=== PATIENT | female | born 1935 | race Caucasian/White ===

== ENCOUNTER 2023-03-17 13:52 | Inpatient (IN) | payer MEDICARE, OTHER, SELFPAY ==
[2023-03-17 14:01] VITALS: PULSE 86; RESP 16; TEMP 36.6; O2SAT 96; BMI 18.8
--- NOTE | 2023-03-17 14:18 | ECG_ITS ---
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 Measurements Intervals [place] Rate: 79 P: 65 NM: 162 QRS: -71 QRSD: 103 T: 127 QT: 404 QTc: 464 Interpretive Statements SINUS RHYTHM PATTERN CONSISTENT WITH PULMONARY DISEASE INCOMPLETE RIGHT BUNDLE BRANCH BLOCK [90+ ms QRS DURATION, TERMINAL R IN V1/V2, 40+ ms S IN I/aVL/V4/V5/V6] LEFT ANTERIOR FASCICULAR BLOCK [QRS AXIS <= -45, QR IN I, RS IN II] ST DEVIATION AND MODERATE T-WAVE ABNORMALITY, CONSIDER ANTEROLATERAL ISCHEMIA [-0.1+ mV T-WAVE IN V3-V6] No previous ECG available for comparison Electronically Signed On 03-17-2023 16:18:35 CDT by Harjinder Herrera M.D. [id number]
--- NOTE | 2023-03-17 14:41 | XRR_ITS ---
PROCEDURE INFORMATION: Exam: XR Chest Exam date and time: 03/17/2023 2:56 PM Age: 87 years old Clinical indication: Pain; Angina pectoris; Prior surgery; Surgery date: 6+ months; Surgery type: Not specified; Additional info: Chest pain.No history of trauma or recent surgery is provided. TECHNIQUE: Imaging protocol: Radiologic exam of the chest. 1image(s) are provided. Views: 1 view. COMPARISON: No relevant prior studies available. FINDINGS: Tubes, catheters and devices: The sternal wires are aligned with the patient is slightly rotated. Lungs: There is some subsegmental atelectasis versus post inflammatory reticulonodular scarring demonstrated.No lobar consolidation is appreciated. Pleural spaces: No pneumothorax or significant pleural effusion is appreciated. Heart/Mediastinum: The cardiomediastinal silhouette is upper normal in size.This can be seen with central averaging as well as shalonda enlargement.No cardiac decompensation is appreciated. Diaphragm: The hemidiaphragms are symmetric. Bones/joints: Osseous alignment is maintained.No displaced fracture or dislocation is appreciated. There are some chronic appearing degenerative changes of the shoulders. Soft tissues: No radiopaque foreign body or subcutaneous emphysema is appreciated. There are some interventional type clips about the left chest wall along with slight asymmetry of the soft tissues. XR/XR chest 1V portable [id number] IMPRESSION: No lobar consolidation or cardiac decompensation is appreciated with mild chronic air trapping and scarring appearance.No acute cardiopulmonary changes are appreciated.
--- NOTE | 2023-03-17 15:16 | ED_ITS ---
HPI - Arrhythmia/Palpitations General: Chief Complaint: Arrhythmia/Palpitations Stated Complaint: chest pain/heart flutter Time Seen by Provider: 03/17/23 14:50 History of Present Illness: Patient presents to the ER with a 2-day history of heart palpitations. Patient's family said she has complained about this before but today she does not did not look like she felt good. Patient denies any pain but says she is chronically short of breath. Patient is currently undergoing treatment for skin cancer on her left chest and left side of her face. She has appointment set up in [place] for surgical removal. This may be causing patient's anxiety. Patient has had a CABG in the past. Review of Systems General: Reports: 10 or more systems reviewed and unremarkable except in HPI and below Physical Exam Const: COMMON NORMALS: no acute distress, average body habitus, patient oriented x3, no limitations, healthy appearing, alert and well nourished HENMT: COMMON NORMALS: normocephalic, atraumatic, hearing grossly normal bilaterally, external ears normal, Normal external nose present and moist oral mucous membranes HEAD & SCALP: normocephalic and atraumatic NOSE: Normal external nose present EXTERNAL EAR: Yes external ears normal Eye: COMMON NORMALS: Equal, round and reactive pupils present, EOMs intact bilaterally, conjunctivae normal and no scleral icterus CONJUNCTIVA: Yes conjunctivae normal PUPIL: Yes Equal, round and reactive pupils present Neck/C-Spine: COMMON NORMALS: full ROM, no lymphadenopathy, supple, no meningeal signs, no JVD and Thyroid normal THYROID: Thyroid normal Chest: COMMONS NORMALS: normal palpation of entire chest wall; negative for normal inspection of the chest (Open surgical defect on the left anterior chest wall.) Resp: COMMON NORMALS: normal respiratory effort, No retractions, No use of accessory muscles and clear to auscultation bilaterally AUSCULTATION: clear to auscultation bilaterally Cardio: COMMON NORMALS: no JVD, regular rate, regular rhythm, S1 normal heart sound present and S2 normal heart sound present; negative for No murmurs present (Cardio) (Systolic ejection murmur noted) RATE: regular rate RHYTHM: regular rhythm HEART SOUNDS: S1 normal heart sound present and S2 normal heart sound present GI: COMMON NORMALS: Normal to inspection, nondistended, normoactive bowel sounds present, Soft to palpation, non-tender, No hepatosplenomegaly present and no masses PALPATION: Yes Soft to palpation and Yes No hepatosplenomegaly present : COMMON NORMALS: Yes no CVA tenderness BLADDER/KIDNEY EXAM: Yes no CVA tenderness Back/Pelvis: COMMON NORMALS: no CVA tenderness Neuro: COMMON NORMALS: patient oriented x3 SENSORIUM/ORIENTATION: Yes alert MENINGEAL SIGNS: Yes no meningeal signs Course Vital Signs: Vital signs: Vital Signs Temperature 97.9 F 03/17/23 14:01 Pulse Rate 86 03/17/23 14:01 Respiratory Rate 16 03/17/23 14:01 Pulse Oximetry 96 03/17/23 14:01 Oxygen Delivery Me thod Room Air 03/17/23 14:01 MDM - Arrhythmia/Palpitations Medical Decision Making Patient presents ER with complaints of heart palpitations since yesterday. Patient says feels like her heart is jumping out of her chest. Patient denies any pain however patient does have a cardiac history with a multivessel bypass approximately 15 years ago. Patient is a diabetic on metformin and metoprolol. EKG was obtained chest x-ray and lab work. Lab work shows extremely elevated troponin initial of 625. EKG showed normal sinus rhythm with a left anterior fascicular block and right bundle branch block Dr. Benton was consulted who agreed to accept the patient for further evaluation and treatment. We will give the patient a full dose Lovenox and perform a D-dimer., Differential Diagnosis Likely palpitations and ventricular premature beats; Unlikely anxiety, sinus tachycardia, artial fibrillation, artial flutter, supraventricular tachycardia, ventricular tachycardia or WPW Medical Records I reviewed the patient's medical records. Lab Data I reviewed the patient's lab results. 03/17/23 15:12 03/17/23 15:12 Radiology Impressions Chest X-Ray 03/17/23 14:41 IMPRESSION: No lobar consolidation or cardiac decompensation is appreciated with mild chronic air trapping and scarring appearance.No acute cardiopulmonary changes are appreciated. Laboratory Results WBC 10.3 10^3/uL (4.0-10.0) H 03/17/23 15:12 RBC 3.99 10^6/uL (4.1-5.3) L 03/17/23 15:12 Hgb 12.4 g/dL (11.5-15.3) 03/17/23 15:12 Hct 38.6 % (37.0-47.0) 03/17/23 15:12 MCV 96.7 fl (81-99) 03/17/23 15:12 MCH 31.1 pg (28.0-34.0) 03/17/23 15:12 MCHC 32.1 g/dL (30.0-36.0) 03/17/23 15:12 RDW 13.2 % (12.1-15.1) 03/17/23 15:12 Plt Count 191 10^3/cmm (130-400) 03/17/23 15:12 MPV 9.5 fL (7.4-10.4) 03/17/23 15:12 Neut % (Auto) 69.8 % 03/17/23 15:12 Lymph % (Auto) 16.9 % 03/17/23 15:12 Charles % (Auto) 11.5 % 03/17/23 15:12 Eos % (Auto) 1.0 % 03/17/23 15:12 Baso % (Auto) 0.6 % 03/17/23 15:12 Neut # (Auto) 7.21 10^3/uL (1.8-7.7) 03/17/23 15:12 Lymph # (Auto) 1.8 10^3/uL (0.8-4.8) 03/17/23 15:12 Charles # (Auto) 1.2 10^3/uL (0.2-0.9) H 03/17/23 15:12 Eos # (Auto) 0.1 10^3/uL (0.0-0.8) 03/17/23 15:12 Baso # (Auto) 0.1 10^3/uL (0.0-0.1) 03/17/23 15:12 Nucleated RBC % (auto) 0 % 03/17/23 15:12 Nucleated RBCs # 0.0 /100WBC 03/17/23 15:12 Sodium 135 mmol/L (136-145) L 03/17/23 15:12 Potassium 4.0 mmol/L (3.5-5.1) 03/17/23 15:12 Chloride 102 mmol/L (98-107) 03/17/23 15:12 Carbon Dioxide 20 mmol/L (22-29) L 03/17/23 15:12 Anion Gap 17.0 (5-19) 03/17/23 15:12 BUN 14 mg/dL (8-23) 03/17/23 15:12 Creatinine 0.8 mg/dL (0.5-0.9) 03/17/23 15:12 GFR Calculation Not Reportable 03/17/23 15:12 Glucose 237 mg/dL (65-115) H 03/17/23 15:12 Calculated Osmolality 288 mOsm/kg (285-295) 03/17/23 15:12 Calcium 9.6 mg/dL (8.5-10.5) 03/17/23 15:12 Total Bilirubin 0.7 mg/dL (0.15-1.2) 03/17/23 15:12 AST 18 U/L (0-32) 03/17/23 15:12 ALT < 5 U/L (0-33) 03/17/23 15:12 Alkaline Phosphatase 80 U/L (35-105) 03/17/23 15:12 Troponin T Baseline 625 ng/L (0-10) H* 03/17/23 15:12 Total Protein 7.1 g/dL (6.6-8.7) 03/17/23 15:12 Albumin 3.6 g/dL (3.5-5.2) 03/17/23 15:12 Globulin 3.5 g/dL (1.3-4.6) 03/17/23 15:12 EKG Data EKG 1: I personally reviewed and interpreted this EKG as follows: EKG interpretation date: 03/17/23 EKG interpretation time: 14:18 Prior EKG tracings: not available for review Interpretation: EKG showed normal sinus rhythm with a ventricular rate of 79 beats minute, NJ interval 162, QRS 103, QTc 464, no ST-T wave changes, left anterior fascicular block, right bundle branch block incomplete Other EKG comments: Chest X-Ray 03/17/23 14:41 IMPRESSION: No lobar consolidation or cardiac decompensation is appreciated with mild chronic air trapping and scarring appearance.No acute cardiopulmonary changes are appreciated. Discharge Plan Discharge Patient Disposition: Admitted As Inpatient Clinical Impression: Palpitations, Elevated troponin, Hx of CABG, Diabetes Condition: Stable Coding Level of Care Code ED Telepathist for Chg Fwregan
[2023-03-17 15:20] LABS: Basophils # 0.1 10^3/uL (0.0-0.1); Basophils % 0.6 %; Eosinophils # 0.1 10^3/uL (0.0-0.8); Hematocrit 38.6 % (37.0-47.0); Hemoglobin 12.4 g/dL (11.5-15.3); Lymphocytes # 1.8 10^3/uL (0.8-4.8); Lymphocytes % 16.9 %; Mean Corpuscular HGB Conc 32.1 g/dL (30.0-36.0); Mean Corpuscular Hemoglobin 31.1 pg (28.0-34.0); Mean Corpuscular Volume 96.7 fl (81-99); Mean Platelet Volume 9.5 fL (7.4-10.4); Monocytes # 1.2 10^3/uL (0.2-0.9); Monocytes % 11.5 %; Neutrophils # 7.21 10^3/uL (1.8-7.7); Neutrophils % 69.8 %; Nucleated Red Blood Cells % 0 %; Platelet Count 191 10^3/cmm (130-400); Red Blood Count 3.99 10^6/uL (4.1-5.3); Red Cell Distribution Width 13.2 % (12.1-15.1); White Blood Count 10.3 10^3/uL (4.0-10.0)
[2023-03-17 15:41] LABS: Troponin(5th) Baseline 625 ng/L (0-10)
[2023-03-17 15:44] LABS: Alanine Aminotransferase < 5 U/L (0-33); Albumin Level 3.6 g/dL (3.5-5.2); Alkaline Phosphatase 80 U/L (35-105); Aspartate Amino Transferase 18 U/L (0-32); Blood Urea Nitrogen 14 mg/dL (8-23); Calcium 9.6 mg/dL (8.5-10.5); Carbon Dioxide 20 mmol/L (22-29); Chloride 102 mmol/L (98-107); Creatinine Clr Calc Pharmacy 33.6154; Globulin 3.5 g/dL (1.3-4.6); Glucose 237 mg/dL (65-115); Osmolality Calculated 288 mOsm/kg (285-295); Sodium 135 mmol/L (136-145); Total Bilirubin 0.7 mg/dL (0.15-1.2); Total Protein 7.1 g/dL (6.6-8.7)
[2023-03-17] MEDS: enoxaparin 40 mg/0.4 mL Syringe SUBCUT ×2 (16:29→20:06)
--- NOTE | 2023-03-17 16:41 | ECG_ITS ---
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 Measurements Intervals [place] Rate: 88 P: 62 MT: 167 QRS: -70 QRSD: 102 T: 127 QT: 384 QTc: 466 Interpretive Statements SINUS RHYTHM WITH OCCASIONAL SUPRAVENTRICULAR PREMATURE COMPLEXES LEFT AXIS DEVIATION [QRS AXIS < -30] INCOMPLETE RIGHT BUNDLE BRANCH BLOCK [90+ ms QRS DURATION, TERMINAL R IN V1/V2, 40+ ms S IN I/aVL/V4/V5/V6] ST DEVIATION AND MODERATE T-WAVE ABNORMALITY, CONSIDER ANTEROLATERAL ISCHEMIA [-0.1+ mV T-WAVE IN V3-V6] Compared to ECG 03/17/2023 14:18:50 Left-axis deviation now present Left anterior fascicular block no longer present T-wave abnormality still present Possible ischemia still present Electronically Signed On 03-18-2023 9:55:18 CDT by Codi Quinn M.D. [id number]
[2023-03-17 17:03] LABS: D Dimer 0.87 ug/mIFEU (0-0.59)
[2023-03-17 17:07] VITALS: PULSE 80; RESP 21; O2SAT 97
--- NOTE | 2023-03-17 17:18 | USCV_ITS ---
Talisha Brown Age: 87 Gender: F : 1935 Exam Date: 03/17/2023 19:13 Ordering Phys: Andriy Bhatia MD Technologist: AMINATA [place] [facility] [place]: NSTEMI, history of CABG s/p MD 2008. BP: 109 / 50 HR: 77 Rhythm: PVCs Technical Quality: Adequate MEASUREMENTS (Male / Female) Normal Values 2D ECHO LV Diastolic Diameter PLAX 4.2 cm 4.2 - 5.9 / 3.9 - 5.3 cm LV Systolic Diameter PLAX 3.1 cm IVS Diastolic Thickness 1.0 cm 0.6 - 1.0 / 0.6 - 0.9 cm IVS Systolic Thickness 1.2 cm LVPW Diastolic Thickness 0.6 cm 0.6 - 1.0 / 0.6 - 0.9 cm LVPW Systolic Thickness 1.4 cm LVOT Diameter 1.7 cm LV Ejection Fraction 2D Teich 53.8 % LV Ejection Fraction MOD 2C 48.6 % LV Ejection Fraction 2C AL 49.4 % LA Diameter 3.2 cm LA Width 3.1 cm LA Height 4.9 cm RA Width 3.5 cm RA Height 3.9 cm Aorta at Sinotubular Diameter 3.0 cm IVC Diameter 0.8 cm M-MODE Aortic Annulus Diameter 2.8 cm LA Ao Ratio MM 1.2 MV E Point Septal Separation 0.5 cm DOPPLER AV Peak Velocity 127.0 cm/s LVOT Peak Velocity 77.0 cm/s AV Area Cont Eq vti 1.4 cm squared AV Area Cont Eq pk 1.3 cm squared MV Peak Velocity 123.0 cm/s MV Area PHT 3.5 cm squared Mitral E to A Ratio 1.0 MV E' Velocity 57.0 cm/s Mitral E to MV E' Ratio 23.9 Mitral E to LV E' Lateral Ratio 17.9 Mitral E to LV E' Septal Ratio 37.1 TR Peak Velocity 208.0 cm/s TR Peak Gradient 17.3 mmHg TV Peak E Velocity 31.0 cm/s Right Atrial Pressure 5.0 mmHg Pulmonary Artery Systolic Pressu 22.3 mmHg PV Peak Velocity 119.0 cm/s RV Acceleration Time 0.1 s RV Ejection Time 0.3 s RV AcT/ET 0.3 FINDINGS Left Ventricle Normal left ventricular cavity size. Moderately decreased left ventricular systolic function. Left ventricular ejection fraction is estimated at 35 %. Severe hypokinesis of basal to mid anterior, basal to mid anteroseptal, inferoseptal, apical septal, apical anterior, apical inferior and apical matias. Grade I diastolic dysfunction (abnormal relaxation filling pattern), normal to mildly elevated filling pressures. Right Ventricle RVSP could not be calculated due to incomplete tricuspid regurgitation velocity profile. Right Atrium Normal right atrial size. Left Atrium Normal left atrial size. Mitral Valve Mildly thickened mitral valve. No mitral valve stenosis. Trace to mild mitral valve regurgitation. Aortic Valve Mildly thickened and calcified trileaflet aortic valve. No aortic valve stenosis. Trace aortic valve regurgitation. Tricuspid Valve Structurally normal tricuspid valve. Trace tricuspid valve regurgitation. Pulmonic Valve Pulmonic valve not well visualized. No pulmonary valve stenosis. Trace pulmonary valve regurgitation. Pericardium No pericardial effusion. Aorta Normal size aortic root and proximal ascending aorta. IVC Normal IVC dimension with >50% respiratory change of the inferior vena cava. CONCLUSIONS 1. This is a technically difficult study. 2. Normal left ventricular cavity size. Moderately decreased left ventricular systolic function. Left ventricular ejection fraction is estimated at 35 %. Severe hypokinesis of basal to mid anterior, basal to mid anteroseptal, inferoseptal, apical septal, apical anterior, apical inferior and apical matias. Grade I diastolic dysfunction (abnormal relaxation filling pattern), normal to mildly elevated filling pressures. 3. No prior similar studies to compare. Codi Quinn MD (Electronically Signed) Final Date: 18 March 2023 09:51 S
--- NOTE | 2023-03-17 17:19 | P.HP_ITS ---
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 She presents to the emergency room due to chest pain which has been ongoing for the past several weeks. Patient not able to give me a clear timeline but states that she has had intermittent chest discomfort at least over the past 3 to 4 weeks. She has not noticed any obvious exacerbating or relieving factors. Chest pain is located in central chest, stabbing in nature, occurs both during exertion and rest. She initially attributed it to the known squamous cell cancer on her anterior chest wall for which she has scheduled surgery in [place] on . However when the pain became more frequent she presented to the emergency room today. EKG did not show any acute ST-T wave changes. Troponin baseline was at 625, trending up to 730 at 2 hours with a delta of over 100. Also has a known history of diabetes mellitus for which she is currently on metformin. Denies any recent cough. Denies any dyspnea. Denies any lower extremity swelling. As per patient she is due for a possible removal of squamous cell carcinoma from chest wall up at [facility] within next 1 week. Patient has been noncompliant to her medications as per the daughter as she does not like taking medications because she thinks they make her sicker. Patient has not been on aspirin or Plavix for many months. Review of Systems General: Reports: 10 or more systems reviewed and unremarkable except in HPI and below Const: Denies: fever(s), chills, body aches, change in appetite, change in weight, malaise, night sweats, diaphoresis, change in sleep pattern, daytime sleepiness or snoring Eyes: Denies: change in vision, blurry vision, photophobia, eye discomfort or eye discharge ENMT: Denies: throat pain, enlarged tonsils, hoarseness, mouth pain, oral sores, dry mouth, tinnitus, nasal congestion or post nasal drip Card: Denies: chest pain, palpitations, irregular heart rhythm, edema, swelling of feet/ankles, lightheadedness, syncope, pre-syncope, dyspnea on exertion, orthopnea, leg pain with exertion or acrocyanosis Resp: Denies: dyspnea, productive cough, non-productive cough, wheezing, stridor, pain on inspiration, change in phlegm color, hemoptysis or chest congestion GI: Denies: abdominal pain, nausea, vomiting, hematemesis, coffee ground emesis, dysphagia, heartburn, diarrhea, constipation, bloating, GI cramping, change in bowel habits, pain on defecation, hematochezia or melena : Denies: flank pain, dysuria, urinary frequency, urinary urgency, urinary hesitancy, nocturia or hematuria Musc: Denies: neck pain, back pain, extremity pain, joint pain, joint swelling, joint redness, joint stiffness or limited range of motion Neuro: Denies: headache(s), numbness in extremities, weakness in extremities, sensory changes, lack of coordination, difficulty walking, frequent falls, dizziness, vertigo, confusion, Slurred speech present, difficulty communicating thoughts or seizure-like activity Psych: Denies: anxiety, depression, mood swings, panic attacks, hopelessness or irritability Endo: Denies: polyuria, polydipsia, tired all the time, cold intolerance, excessive sweating, flushing or heat intolerance Sage/Lymph: Denies: easy bruising or easy bleeding All/Imm: Denies: tongue swelling, facial swelling or acute wheezing Medications/Allergies Home Medications Medication Instructions Recorded Confirmed Last Taken Type metformin 500 mg tablet 500 mg PO BID 03/17/23 03/17/23 Unknown History metoprolol succinate 25 mg 12.5 mg PO BID 03/17/23 03/17/23 Unknown History tablet,extended release 24 hr Allergies Allergy/AdvReac Type Severity Reaction Status Date / Time No Known Allergies Allergy Verified 03/17/23 16:28 PFSH Acute PFSH: Medical History (Updated 03/18/23 @ 12:48 by Andriy Bhtaia MD) Coronary artery disease Melanoma Squamous cell carcinoma of skin of chest Surgical History Hx of CABG Vitals/I&O/Wt Last Vital Signs Temp 97.9 F 03/17/23 14:01 Pulse 80 03/17/23 17:07 Resp 21 H 03/17/23 17:07 Pulse Ox 97 03/17/23 17:07 O2 Del Method Room Air 03/17/23 14:01 Weight last 48 hrs Weight 42.184 kg Physical Exam Narrative: EXAM NARRATIVE: General: No acute distress, AO x3 HEENT: PERRLA, pupils bilaterally equal and reactive Chest: equal good air entry bilaterally CVS: S1-S2 regular, no murmurs, no tachycardia, no gallops, no rubs Abdomen: Soft, nontender, no organomegaly, bowel sounds present Neuro: No focal deficits, no facial deformity, AO x3, power 5/5 in all limbs Data 03/18/23 04:56 03/18/23 04:56 Other Labs: Radiology Impressions Chest X-Ray 03/17/23 14:41 IMPRESSION: No lobar consolidation or cardiac decompensation is appreciated with mild chronic air trapping and scarring appearance.No acute cardiopulmonary changes are appreciated. Laboratory Results WBC 10.3 10^3/uL (4.0-10.0) H 03/17/23 15:12 RBC 3.99 10^6/uL (4.1-5.3) L 03/17/23 15:12 Hgb 12.4 g/dL (11.5-15.3) 03/17/23 15:12 Hct 38.6 % (37.0-47.0) 03/17/23 15:12 MCV 96.7 fl (81-99) 03/17/23 15:12 MCH 31.1 pg (28.0-34.0) 03/17/23 15:12 MCHC 32.1 g/dL (30.0-36.0) 03/17/23 15:12 RDW 13.2 % (12.1-15.1) 03/17/23 15:12 Plt Count 191 10^3/cmm (130-400) 03/17/23 15:12 MPV 9.5 fL (7.4-10.4) 03/17/23 15:12 Neut % (Auto) 69.8 % 03/17/23 15:12 Lymph % (Auto) 16.9 % 03/17/23 15:12 Hardy % (Auto) 11.5 % 03/17/23 15:12 Eos % (Auto) 1.0 % 03/17/23 15:12 Baso % (Auto) 0.6 % 03/17/23 15:12 Neut # (Auto) 7.21 10^3/uL (1.8-7.7) 03/17/23 15:12 Lymph # (Auto) 1.8 10^3/uL (0.8-4.8) 03/17/23 15:12 Hardy # (Auto) 1.2 10^3/uL (0.2-0.9) H 03/17/23 15:12 Eos # (Auto) 0.1 10^3/uL (0.0-0.8) 03/17/23 15:12 Baso # (Auto) 0.1 10^3/uL (0.0-0.1) 03/17/23 15:12 Nucleated RBC % (auto) 0 % 03/17/23 15:12 Nucleated RBCs # 0.0 /100WBC 03/17/23 15:12 D-Dimer 0.87 ug/mIFEU (0-0.59) H 03/17/23 16:40 Sodium 135 mmol/L (136-145) L 03/17/23 15:12 Potassium 4.0 mmol/L (3.5-5.1) 03/17/23 15:12 Chloride 102 mmol/L (98-107) 03/17/23 15:12 Carbon Dioxide 20 mmol/L (22-29) L 03/17/23 15:12 Anion Gap 17.0 (5-19) 03/17/23 15:12 BUN 14 mg/dL (8-23) 03/17/23 15:12 Creatinine 0.8 mg/dL (0.5-0.9) 03/17/23 15:12 GFR Calculation Not Reportable 03/17/23 15:12 Glucose 237 mg/dL (65-115) H 03/17/23 15:12 POC Glucose 243 mg/dL (70-110) H 03/17/23 22:56 Calculated Osmolality 288 mOsm/kg (285-295) 03/17/23 15:12 Calcium 9.6 mg/dL (8.5-10.5) 03/17/23 15:12 Iron 28 ug/dL (37-145) L 03/17/23 15:12 TIBC 319 mcg/dl 03/17/23 15:12 % Saturation 8.7 % (20-50) L 03/17/23 15:12 Unsat Iron Binding 291 ug/dL (112-347) 03/17/23 15:12 Total Bilirubin 0.7 mg/dL (0.15-1.2) 03/17/23 15:12 AST 18 U/L (0-32) 03/17/23 15:12 ALT < 5 U/L (0-33) 03/17/23 15:12 Alkaline Phosphatase 80 U/L (35-105) 03/17/23 15:12 Troponin T Baseline 625 ng/L (0-10) H* 03/17/23 15:12 Troponin T 120 Minute 730.6 ng/L (0-10) H 03/17/23 16:40 Delta Troponin T 105.6 ABS# (0-10) H* 03/17/23 16:40 Troponin T Hi Sens 6Hr 679.4 ng/L (0-10) H 03/17/23 21:18 Troponin T Hi Sens 6Hr Delta 54.4 ng/L (0-12) H* 03/17/23 21:18 Total Protein 7.1 g/dL (6.6-8.7) 03/17/23 15:12 Albumin 3.6 g/dL (3.5-5.2) 03/17/23 15:12 Globulin 3.5 g/dL (1.3-4.6) 03/17/23 15:12 Vitamin B12 150 pg/mL (232-1245) L 03/17/23 15:12 Procalcitonin 0.04 ng/mL (0-0.5) 03/17/23 15:12 TSH 2.97 uIU/mL (0.27-4.20) 03/17/23 15:12 A&P Assessment and plan (1) NSTEMI (non-ST elevated myocardial infarction): 87-year-old lady with a past medical history of CAD, status post remote CABG, presenting with chest pain over the past several weeks worsened over the past 24 to 48 hours. EKG shows sinus rhythm heart rate 88 bpm. Troponin baseline at 625, trending up to 738 2 hours with a delta of greater than 100. 6-hour troponin is currently pending. Admit to CSU aspirin 325 mg stat now, Lipitor 80 mg now. Start Lovenox 1 mg/kg every 12 hours subcutaneously Continue aspirin 81 mg daily, atorvastatin 80 mg daily, metoprolol 12.5 mg p.o. twice daily Cardiology consult to assess for coronary angiogram Check lipid panel (2) Diabetes: Sliding scale for diabetes management Check HbA1c with a.m. labs Qualifiers: Diabetes mellitus complication status: without complication Diabetes mellitus senior care insulin use: without senior care use Diabetes mellitus type: type 2 Qualified Code(s): E11.9 - Type 2 diabetes mellitus without complications (3) Squamous cell carcinoma of skin of chest: Check CTA to rule out for pulmonary embolism with concerns for malignancy and extent of the chest wall mass Plan DVT prophylaxis: Currently on full dose Lovenox for NSTEMI CODE STATUS: Discussed in detail with the patient. DNR/DNI. 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
[2023-03-17 17:33] LABS: Troponin 5 2HR 730.6 ng/L (0-10); Troponin 5 2HR Delta 105.6 ABS# (0-10)
[2023-03-17 18:13] LABS: Iron 28 ug/dL (37-145); Percent Saturation 8.7 % (20-50); Thyroid Stimulating Hormone 2.97 uIU/mL (0.27-4.20); Total Iron Binding Capacity 319 mcg/dl; Unsaturated Iron Binding 291 ug/dL (112-347); Vitamin B12 150 pg/mL (232-1245)
[2023-03-17 18:51] LABS: Procalcitonin 0.04 ng/mL (0-0.5)
[2023-03-17 20:00] VITALS: BP 109/50; PULSE 69; RESP 19; TEMP 36.7; O2SAT 99
[2023-03-17] MEDS: metoprolol succinate ER (24 HR) 25 mg Tablet 12.5 MG PO (20:06)
[2023-03-17 21:54] LABS: Troponin 5 6HR 679.4 ng/L (0-10); Troponin 5 6HR Delta 54.4 ng/L (0-12)
[2023-03-17 22:59] LABS: Glucose Point of Care 243 mg/dL (70-110)
--- NOTE | 2023-03-17 23:44 | ECG_ITS ---
[facility] Test Date: 2023-03-18 Pat Name: Talisha Brown Department: Room: 112 Gender: Female Tower Attendant: : 1935 Requested By: Andriy Bhatia Order Number: [id number] Isaak MD: Codi Quinn M.D. Interpretive Statements NAME OF STUDY: LEXISCAN SESTAMIBI STRESS TEST INDICATION: NONSTEMI PROCEDURE: At the baseline, the blood pressure was 120/62 mmHg with a heart rate of 69 bpm. The electrocardiogram showed sinus rhythm, left axis deviation. Mild ST elevation and deep T wave inversion noted in V1-V3. Moderate T wave inversion noted in lead I, aVL, V4 to V5. The Lexiscan was infused over a period of 20 seconds. A total of 0.4 milligrams of Lexiscan was infused. The stress phase was continued for a total of 5 minutes. Heart rate at the end of the stress phase was 76 bpm with a blood pressure 104/45 mmHg. The EKG at the peak infusion revealed sinus rhythm with first-degree AV block with frequent PVCs in bigeminal pattern. ST elevation becomes more prominent anterior leads. Sestamibi was injected 20 seconds after the Lexiscan infusion. Blood pressure at the end of the recovery phase was 143/65 mmHg with a heart rate of 77 beats per minute. CONCLUSION: 1. Marked positive EKG changes with the LexiScan infusion. More pronounced ST elevation with deep T wave inversion noted in V1 to V3 anterior leads with deep T wave inversion in 1 aVL V4 to V5 at peak infusion. 2. No LexiScan induced chest pain. PVCs noted during Lexiscan infusion. 3. Normal blood pressure and heart rate response. 4. Sestamibi/sestamibi perfusion scan pending; see separate report. Electronically Signed On 03-30-2023 13:15:35 CDT by Codi Quinn M.D. [id number]
[2023-03-18] VITALS (83 sets, daily range): BP systolic 120–173; BP diastolic 60–99; PULSE 0–83; RESP 10–22; TEMP 36.5–37.3; O2SAT 94–100
[2023-03-18 05:33] LABS: Basophils # 0.1 10^3/uL (0.0-0.1); Basophils % 0.6 %; Eosinophils # 0.1 10^3/uL (0.0-0.8); Eosinophils % 1.1 %; Hematocrit 38.7 % (37.0-47.0); Hemoglobin 12.9 g/dL (11.5-15.3); Lymphocytes # 2.1 10^3/uL (0.8-4.8); Lymphocytes % 22.9 %; Mean Corpuscular HGB Conc 33.3 g/dL (30.0-36.0); Mean Corpuscular Hemoglobin 31.2 pg (28.0-34.0); Mean Corpuscular Volume 93.5 fl (81-99); Mean Platelet Volume 9.4 fL (7.4-10.4); Monocytes # 0.9 10^3/uL (0.2-0.9); Monocytes % 9.7 %; Neutrophils % 65.1 %; Nucleated Red Blood Cells % 0 %; Platelet Count 267 10^3/cmm (130-400); Red Blood Count 4.14 10^6/uL (4.1-5.3); Red Cell Distribution Width 13.2 % (12.1-15.1); White Blood Count 9.1 10^3/uL (4.0-10.0)
[2023-03-18 05:53] LABS: Estmated Average Glucose 169; Hemoglobin A1C 7.5 % (4.0-6.0)
[2023-03-18] MEDS: enoxaparin 40 mg/0.4 mL Syringe SUBCUT ×2 (06:07→17:56)
[2023-03-18 06:23] LABS: Alanine Aminotransferase < 5 U/L (0-33); Albumin Level 3.8 g/dL (3.5-5.2); Alkaline Phosphatase 82 U/L (35-105); Anion Gap 12.9 (5-19); Aspartate Amino Transferase 15 U/L (0-32); Blood Urea Nitrogen 11 mg/dL (8-23); Calcium 10.3 mg/dL (8.5-10.5); Carbon Dioxide 26 mmol/L (22-29); Chloride 99 mmol/L (98-107); Cholesterol 159 mg/dL (0-200); Creatinine Clr Calc Pharmacy 33.6154; Globulin 3.4 g/dL (1.3-4.6); Glucose 202 mg/dL (65-115); HDL Cholesterol 53 mg/dL (60-100); LDL Cholesterol Calculated 85 mg/dL (50-129); Magnesium 1.5 mg/dL (1.7-2.3); Osmolality Calculated 283 mOsm/kg (285-295); Phosphorus 2.4 mg/dL (2.5-4.5); Potassium 3.9 mmol/L (3.5-5.1); Sodium 134 mmol/L (136-145); Total Bilirubin 1.1 mg/dL (0.15-1.2); Total Protein 7.2 g/dL (6.6-8.7); Triglycerides 106 mg/dL (0-150)
[2023-03-18 06:34] LABS: Folate Level 14.8 ng/mL (4.8-37.3)
[2023-03-18 06:43] LABS: Glucose Point of Care 199 mg/dL (70-110)
[2023-03-18] MEDS: regadenoson 0.4 Mg/5 ml Syringe IVP (07:21)
--- NOTE | 2023-03-18 07:28 | PM.CONSULT ---
Providers/Reason For Consult Consulting Physician/Specialty*: Dr. 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 She presented to the ER with anterior wall chest pain that she attributes to the melanoma. EKG showes anterolateral ST-T wave changes suggestive of ischemia.? Troponin baseline 625, trending up to 730 at 2 hours with a delta of over 100 and third set at 680. No?dyspnea, lower extremity swelling. 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 Patient has not been on aspirin or Plavix for many months Review of Systems Const: Denies: fatigue Eyes: Denies: change in vision ENMT: Denies: throat pain, bleeding gums or epistaxis Card: Reports: chest pain; Denies: palpitations, irregular heart rhythm, edema, swelling of feet/ankles, lightheadedness, syncope, pre-syncope, dyspnea on exertion or orthopnea Resp: Denies: dyspnea, productive cough or non-productive cough GI: Denies: abdominal pain, nausea, vomiting, hematemesis, diarrhea, constipation or hematochezia : Denies: dysuria or hematuria Musc: Denies: back pain, extremity swelling, joint pain or muscle weakness Skin/Breast: Denies: rash Neuro: Denies: dizziness Psych: Denies: anxiety or depression Endo: Denies: tired all the time Sage/Lymph: Denies: easy bruising or easy bleeding Medications/Allergies Home Medications Medication Instructions Recorded Confirmed Last Taken Type metformin 500 mg tablet 500 mg PO BID 03/17/23 03/17/23 Unknown History metoprolol succinate 25 mg 12.5 mg PO BID 03/17/23 03/17/23 Unknown History tablet,extended release 24 hr Allergies Allergy/AdvReac Type Severity Reaction Status Date / Time No Known Allergies Allergy Verified 03/17/23 16:28 Current Medications Generic Name Dose Route Start Last Admin Trade Name Freq PRN Reason Stop Dose Admin Enoxaparin Sodium 40 mg 03/17/23 18:48 03/18/23 06:07 Enoxaparin 40 Mg/0.4 Ml Syringe SUBCUT 40 mg Q12H STACIE Administration Insulin Human Lispro 0 unit 03/17/23 18:48 03/17/23 22:40 Insulin Lispro 100 Unit/1 Ml SUBCUT Not Given WM&BEDTIME STACIE Protocol Metoprolol Succinate 12.5 mg 03/17/23 18:48 03/17/23 20:06 Metoprolol Succinate Er (24 Hr) 25 Mg Tablet PO 12.5 mg BID STACIE Administration PFSH Acute PFSH: Medical History Coronary artery disease Hypertension Ischemic cardiomyopathy Left ventricular systolic dysfunction (LVSD) Melanoma Squamous cell carcinoma of skin of chest Surgical History Hx of CABG Vitals/I&O/Wt Last Vital Signs Temp 99.2 F 03/18/23 04:00 Pulse 70 03/18/23 04:00 Resp 17 03/18/23 04:00 BP 164/94 03/18/23 04:00 Pulse Ox 97 03/18/23 04:00 O2 Del Method Room Air 03/18/23 04:00 FiO2 21 03/18/23 01:31 03/17/23 03/18/23 03/18/23 22:59 06:59 14:59 Intake Total 480 / 480 Output Total 2 / 2 Balance 478 / 478 Weight last 48 hrs Weight 93 lb Physical Exam Narrative: Gen: NAD, frail elderly lady sitting in bed HEENT/Neck: No JVD, murmur or gallop RS: CTAB/L, anterior chest wall malignant lesion on left upper chest CVS: S1, S2, regular, No murmur, rub or gallop PA: soft, NT, ND, BS2+ RIVET SPINNER: awake, alert and oriented to self Ext: No edema, cyanosis Data 03/18/23 04:56 03/18/23 04:56 Other data: TTE (03/17/23) ?CONCLUSIONS ?1. This is a technically difficult study. ?2. Normal left ventricular cavity size. Moderately decreased ?left ventricular systolic function.? Left ventricular ejection ?fraction is estimated at 35 %. Severe hypokinesis of basal to ?mid anterior, basal to mid anteroseptal, inferoseptal, apical ?septal, apical anterior, apical inferior and apical matias. Grade ?I diastolic dysfunction (abnormal relaxation filling pattern), ?normal to mildly elevated filling pressures. ?3.? No prior similar studies to compare. A&P Assessment and plan (1) NSTEMI (non-ST elevated myocardial infarction): Patient is at high risk for LHC given advanced age and fragility of the patient. -echo with LV function with LAD territory RWMA -I will check on stress test that was done this morning -continue medical management for now. (2) Ischemic cardiomyopathy: (3) Hypertension: (4) Diabetes: Qualifiers: Diabetes mellitus complication status: without complication Diabetes mellitus fdc insulin use: without fdc use Diabetes mellitus type: type 2 Qualified Code(s): E11.9 - Type 2 diabetes mellitus without complications (5) Noncompliance: Plan CAD s/p CABG Advanced age Fraility Coding Level of Care Code Acute Code for [facility] Diagnoses NSTEMI (non-ST elevated myocardial infarction) I21.4 Ischemic cardiomyopathy I25.5 Hypertension I10 Diabetes E11.9 Diabetes mellitus complication status: without complication Diabetes mellitus long term acute care registered nurse insulin use: without long term acute care registered nurse use Diabetes mellitus type: type 2 Noncompliance Z91.199
[2023-03-18] MEDS: iohexol 350 mg/mL 500 mL Btl (per mL) IV (08:37)
--- NOTE | 2023-03-18 09:12 | PC.CHAP ---
Pastoral Care Encounter/Spiritual Assessment Type of Contact [] Declined vice president of procurement visit [] Patient/Family/Request visit [] Outpatient visit [] Follow-up visit [] Physician referral [] Code/Alert [] Routine visit [] Staff referral [] Actively dying [] Patient sleeping [] Family support [] [] Out of room [] Palliative care [] [x] Receiving care in room [] Pre-surgical visit [] Trauma [] Long length of stay [] ICU visit [] Other: Relational/Emotional Strength [] Patient feels connected with others/family/visitors/staff [] Distress [] Loneliness/isolation [] Abandonment Spirituality of Patient [] Person of Kimber[place] [] Attends Faith of their [place] [] Believes in Prayer [] Reads Bible or Church materials [] There are Spiritual issues to be addressed 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 [] Prayer [] Active listening [] Non-anxious presence [] Spiritual/emotional support [] Crisis/trauma care [] Spiritual counseling [] Bereavement support [] Provided bereavement packet [] Provided Bible/devotional materials [] Provided toy/stuffed animal, coloring book to patient or family member [] Provided Communion [] Anointing/[place] [] Salvation [] Completed spiritual assessment [] Other: Impact on Illness or Injury [] Angry [] Fearful [] Anxious [] Often cries [] Exhaustion [] Unable to work [] Unable to attend advent [] Unable to walk/stand [] Unable to read [] Unable to drive [] Unable to eat/drink [] Unable to sleep [] Unable to be with family [] Patient intubated [] Other: Summary Time spent with patient
--- NOTE | 2023-03-18 09:30 | CTR_ITS ---
PROCEDURE INFORMATION: Exam: CTA Chest With Contrast Exam date and time: 03/18/2023 8:18 AM Age: 87 years old Clinical indication: Abnormal findings; Abnormal diagnostic tests; Elevated d-dimer; Prior surgery; Surgery date: 6+ months; Surgery type: Cabg; Additional info: Elevated d dimer TECHNIQUE: Imaging protocol: Computed tomographic angiography of the chest with contrast. Exam focused on the arteries. 3D rendering (Not supervised by radiologist): MIP and/or 3D reconstructed images were created by the technologist. Radiation optimization: All CT scans at this facility use at least one of these dose optimization techniques: automated exposure control; mA and/or kV adjustment per patient size (includes targeted exams where dose is matched to clinical indication); or iterative reconstruction. Contrast material: OMNI 350; Contrast volume: 80 ml; Contrast route: INTRAVENOUS (IV); REPORTING DATA: Count of CT and Cardiac NM exams in prior 12 months: This patient has received 0 known CTs and 0 known cardiac nuclear medicine studies in the 12 months prior to the current study. COMPARISON: CR XR chest 1V portable [id number] 03/17/2023 2:56 PM RADIATION DOSE METRICS: Total DLP (mGy-cm): 199.14 FINDINGS: Pulmonary arteries: The pulmonary arteries are adequately opacified for evaluation to the subsegmental level. There is no filling defect to suggest embolism. Aorta: There is moderate aortic atherosclerotic disease. Lungs: There is dependent atelectasis in the lower lungs. There is no consolidation. There is a band of clustered 2-3 mm nodules in the subpleural right upper lobe. Pleural spaces: There is no pleural effusion or pneumothorax. There is left anterior pleural thickening which may represent pleural extension of the mediastinal mass. Heart: Heart size is mildly enlarged. There is a mass extending from the upper mediastinum anteriorly along the heart obscuring the myocardium and mildly narrowing the pulmonary outflow tract and deforming the apex of the right ventricle. The mass extends through the intercostal spaces anteriorly to involve the fat of the anterior chest wall and left pectoralis major muscle. The mass encases the pulmonary outflow tract. The mass measures 10.4 cm cranial caudal dimension and 9.7 x 4.8 cm axial dimension. Lymph nodes: There is an ill-defined enlarged aortopulmonary lymph node measuring 23 x 18 mm on series 7, image 153. There are prominent confluent lymph nodes in the left hilum. Right hilar lymph nodes are normal. Subcarinal and paratracheal lymph nodes are normal. There is a left epicardial lymph node measuring 11 x 8 mm on series 7, image 360. Gallbladder and bile ducts: Cholelithiasis is present. There is no sign of cholecystitis. Pancreas: There is moderate atrophy of the pancreas which is incompletely visualized. Bones/joints: There is mild degenerative disease at both shoulders. The sternum is intact. Soft tissues: There is soft tissue infiltration of the left pectoral muscle, deep fat and chest wall. CT/CT angio chest PE protcl [id number] IMPRESSION: 1. No pulmonary embolism. 2. 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 The mass encases and mildly narrows the pulmonary trunk. There is involvement of the anterior pericardium and chest wall invasion. There is no fat plane between mass and myocardium. There may be myocardial invasion. There is probable left anterior pleural invasion. 3. Left aortopulmonary window, hilar, and left epicardial lymphadenopathy. 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 4. Incidental findings above. 5. Tiny clustered subpleural nodules in the right upper lobe likely represent a low-grade infectious or inflammatory process of indeterminate chronicity.
[2023-03-18] MEDS: metoprolol succinate ER (24 HR) 25 mg Tablet 12.5 MG PO ×2 (10:01→17:56)
[2023-03-18] MEDS: aspirin 81 mg EC Tablet PO (10:01)
[2023-03-18] MEDS: cyanocobalamin 1,000 mcg/mL SDV 1000 MCG IM (10:02)
[2023-03-18 11:33] LABS: Glucose Point of Care 266 mg/dL (70-110)
--- NOTE | 2023-03-18 12:56 | PM.PN ---
Subjective Subjective: No acute events overnight. Today morning seen for stress test with multiple family members at bedside. Patient has remained hemodynamically stable and afebrile with occasional episodes of VPCs on telemetry. She remains chest pain-free. Patient is extremely hard of hearing. As per the patient and patient's family she is due for removal of chest wall mass next week though they are not sure how deep it goes, patient has stopped taking her cardiac medications including aspirin for many months because she thinks medications are harmful. Vitals/I&O/Wt Last Vital Signs Temp 97.8 F 03/18/23 09:05 Pulse 69 03/18/23 12:35 Resp 16 03/18/23 10:35 BP 146/95 03/18/23 12:35 Pulse Ox 98 03/18/23 12:35 O2 Del Method Room Air 03/18/23 04:00 FiO2 21 03/18/23 08:00 03/17/23 03/18/23 03/18/23 22:59 06:59 14:59 Intake Total 480 / 480 358 / 358 Output Total 2 / 2 Balance 478 / 478 358 / 358 Weight last 48 hrs Weight 42.184 kg Physical Exam Narrative: EXAM NARRATIVE: General: No acute distress, AO x3 HEENT: PERRLA, pupils bilaterally equal and reactive Chest: equal good air entry bilaterally CVS: S1-S2 regular, no murmurs, no tachycardia, no gallops, no rubs Abdomen: Soft, nontender, no organomegaly, bowel sounds present Neuro: No focal deficits, no facial deformity, AO x3, power 5/5 in all limbs Data 03/18/23 04:56 03/18/23 04:56 A&P Assessment and plan (1) NSTEMI (non-ST elevated myocardial infarction): With history of CABG. Noncompliant to medications. Troponin cycled positive. Echocardiogram shows an EF of 35% with regional wall motion abnormality with severe hypokinesis of basal to mid anterior, basal to mid anteroseptal, inferoseptal, apical septal, apical anterior, apical inferior and apical matias with grade 1 diastolic dysfunction. Patient is currently chest pain-free. Appreciate cardiology recommendations. 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 Continue with aspirin, statin, home dose of beta-zac. Continue with full dose Lovenox 1 mg/kg body weight every 12 hourly. Appreciate A1c and lipid panel. Continue with telemetry. Watch for arrhythmias. (2) Diabetes: Insulin sliding scale for diabetes management A1c 7.5. Carb consistent cardiac diet. Qualifiers: Diabetes mellitus complication status: without complication Diabetes mellitus emt intermediate insulin use: without emt intermediate use Diabetes mellitus type: type 2 Qualified Code(s): E11.9 - Type 2 diabetes mellitus without complications (3) Squamous cell carcinoma of skin of chest: Anterior mediastinal mass on CTA extending down to involvement of anterior pericardium and chest wall invasion with concerns for myocardial invasion, left anterior pleural invasion, encasing and mildly narrows the pulmonary trunk. Patient was due for mass removal at [facility]. Most likely given non-ST elevation PR currently will have to hold off on the procedure at least for next 3 to 4 weeks. Patient will be at a higher risk given LV dysfunction, low EF, recent non-ST elevation PR specially in setting of extensive extension of the mass. (4) Ischemic cardiomyopathy: As seen on echocardiogram. For now euvolemic. Watch for fluid overload. (5) Left ventricular systolic dysfunction (LVSD): (6) Positive cardiac stress test: As above. Plan DVT prophylaxis: Currently on full dose Lovenox for NSTEMI CODE STATUS: Discussed in detail with the patient. DNR/DNI. Carb consistent cardiac diet. Famotidine for PUD prophylaxis. Given the above with multiple reducible significant anterior wall mass with extensive parenchymal extension, advanced age, malnutrition with BMI of 18.8 will discuss further goals of care with patient and patient's family with options being medical management for non-ST elevation PR followed by mass removal as possible versus hospice. Also discussed patient is at a higher risk for adverse events to happen during surgery given all of the events. Family is going to talk further with the patient regarding further goals of care and would let us know. Attestations Medical Necessity Statement*: Requires further hospitalization for management of non-ST elevation PR with a positive stress test, ischemic cardiomyopathy with a EF of 35% in a patient with squamous cell carcinoma of anterior chest wall extending down to pericardium and pulmonary trunk Diagnoses NSTEMI (non-ST elevated myocardial infarction) I21.4 Diabetes E11.9 Diabetes mellitus complication status: without complication Diabetes mellitus emt intermediate insulin use: without emt intermediate use Diabetes mellitus type: type 2 Squamous cell carcinoma of skin of chest C44.529 Ischemic cardiomyopathy I25.5 Left ventricular systolic dysfunction (LVSD) I51.9 Positive cardiac stress test R94.39
[2023-03-18] MEDS: magnesium sulfate premix 2 GM/50 ML PIGGYBACK IV (15:58)
[2023-03-18 18:06] LABS: Glucose Point of Care 186 mg/dL (70-110)
[2023-03-18 18:34] LABS: Add Urine Microscopic? YES; Bilirubin Urine Neg (Negative); Blood Urine 3+ (Negative); Glucose Urine UA Norm (Normal); Ketones Urine Negative (Negative); Leukocyte Esterase Urine Trace (Negative); Nitrate Urine Negative (Negative); Protein Urine Trace (Negative); Urine Appearance Clear (CLEAR); Urine Color Orange (Yellow); Urobilinogen Urine Norm (Negative); pH Urine 5 (5-7)
[2023-03-18 18:35] LABS: RBC Urine 0-4 /hpf (0-2); WBC Urine 0-4 /hpf (0-5)
[2023-03-18 18:36] LABS: Add Urine Culture? Yes; Bacteria Urine 4+ /hpf; Squamous Epithelial Cell Urine 0-4 /hpf (0-5)
[2023-03-18] MEDS: atorvastatin 40 mg Tablet 80 MG PO (20:28)
[2023-03-18 22:05] LABS: Glucose Point of Care 237 mg/dL (70-110)
--- NOTE | 2023-03-18 23:44 | NMCV_ITS ---
NM brayan perf SPECT r/s* [id number] Talisha Brown Age: 87 Gender: F : 1935 Exam Date: 03/18/2023 06:41 Ordering Phys: Andriy Bhatia MD Technologist: SANGITA Barros Exam Location: [facility] Indications: CHEST PAIN STRESS TEST [facility] IMAGE PROTOCOL Rest/Stress 1 Lexiscan Day Radiopharmaceutical Dose (mCi) Administration Site Administered by Rest: Tc-99m 10.8 IV Ki Penny, SANGITA Sestamibi Stress:Tc-99m 32.6 IV SANGITA Whitten Sestamibi Rest: 18-Mar-2023 60 Discovery 630 Stress: 18-Mar-2023 30 Discovery 630 0.4mg Lexiscan. Images obtained in supine and prone position. SPECT RESULTS Technical Quality: Excellent Raw Data Analysis: Normal Image Corrections: No attenuation or motion correction applied Summed Stress Score: 19 Summed Rest Score: 13 Summed Difference Score: 6 PERFUSION FINDINGS Large sized perfusion abnormality of moderate to severe severity of mid anteroseptal, mid inferoseptal, apical septal, apical anterior, apical lateral, apical inferior and apical matias at rest images with reversibility in mid to apical anterior and mid septal and apical matias on stress images. FUNCTIONAL RESULTS (calculated via Gated SPECT) Stress Image LV EF (%): 60 Stress EDV (mL):67 TID: 0.96 Stress ESV (mL):27 FUNCTIONAL FINDINGS: The left ventricle is dilated with stress. Transient Ischemia Dilatation of 0.96. There is moderately reduced left ventricular global systolic function. [place] of anterior, septal and apical matias. IMPRESSIONS 1. Large sized reversible perfusion abnormality of moderate to severe severity of mid to apical anterior, mid anteroseptal, mid inferoseptal, apical septal, apical anterior, apical lateral, apical inferior and apical matias. 2. This is suggestive of old myocardial infarction with large area of ischemia in left anterior descending artery territory. 3. Positive EKG changes with Lexiscan infusion. Refer to separate report for details. 4. Scan indicates high risk for cardiac events. Findings of the study were discussed with the ordering physician. Codi Quinn MD (Electronically Signed) Final Date: 18 March 2023 13:06 S
[2023-03-19] VITALS (59 sets, daily range): BP systolic 139–175; BP diastolic 72–94; PULSE 67–73; RESP 16–21; TEMP 36.8–37; O2SAT 94–99; BMI 20.4
[2023-03-19] MEDS: enoxaparin 40 mg/0.4 mL Syringe SUBCUT ×2 (06:16→18:09)
[2023-03-19 06:34] LABS: Glucose Point of Care 202 mg/dL (70-110)
[2023-03-19] MEDS: aspirin 81 mg EC Tablet PO (09:13)
[2023-03-19] MEDS: cyanocobalamin 1,000 mcg/mL SDV 1000 MCG IM (09:13)
[2023-03-19] MEDS: metoprolol succinate ER (24 HR) 25 mg Tablet 12.5 MG PO ×2 (09:13→18:08)
[2023-03-19 11:18] LABS: Glucose Point of Care 325 mg/dL (70-110)
--- NOTE | 2023-03-19 11:22 | PC.NURSE ---
[place] [address] am was 325. Patient continues to refuse insulin. She states it is never this high at home and she is going to wait until she gets home for it to come down.
--- NOTE | 2023-03-19 15:59 | PM.PN ---
Subjective Subjective: No acute events overnight. Patient on examination sitting comfortably in bed. Denies any chest pain, nausea or vomiting. No arrhythmias on telemetry. On review of vitals blood pressure seems to be running on the higher side with systolic more than 148 mmHg. As per nursing staff patient continues to refuse insulin. Blood sugar today morning more than 300. Vitals/I&O/Wt Last Vital Signs Temp 98.3 F 03/19/23 07:43 Pulse 73 03/19/23 11:39 Resp 21 H 03/19/23 11:39 BP 164/93 03/19/23 11:39 Pulse Ox 99 03/19/23 11:39 O2 Del Method Room Air 03/19/23 11:39 FiO2 21 03/19/23 04:00 03/19/23 03/19/23 03/19/23 06:59 14:59 22:59 Intake Total 1071 / 1071 Balance 1071 / 1071 Weight last 48 hrs Weight 45.104 kg Physical Exam Narrative: EXAM NARRATIVE: General: No acute distress, AO x3 HEENT: PERRLA, pupils bilaterally equal and reactive Chest: equal good air entry bilaterally CVS: S1-S2 regular, no murmurs, no tachycardia, no gallops, no rubs Abdomen: Soft, nontender, no organomegaly, bowel sounds present Neuro: No focal deficits, no facial deformity, AO x3, power 5/5 in all limbs Data 03/18/23 04:56 03/18/23 04:56 A&P Assessment and plan (1) NSTEMI (non-ST elevated myocardial infarction): With history of CABG. Noncompliant to medications. Troponin cycled positive. Echocardiogram shows an EF of 35% with regional wall motion abnormality with severe hypokinesis of basal to mid anterior, basal to mid anteroseptal, inferoseptal, apical septal, apical anterior, apical inferior and apical matias with grade 1 diastolic dysfunction. Patient is currently chest pain-free. Appreciate cardiology recommendations. 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 Continue with aspirin, statin, metoprolol succinate 12.5 mg twice daily, add Plavix 75 mg daily. Continue with full dose Lovenox 1 mg/kg body weight every 12 hourly for overall 3 days. Appreciate A1c and lipid panel. Continue with telemetry. Watch for arrhythmias. (2) Diabetes: Patient continues to refuse insulin. A1c 7.5. Start on Sitagliptin 100 mg oral daily, metformin 1000 mg twice daily Carb consistent cardiac diet. 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 Patient was due for mass removal at [facility]. Most likely given non-ST elevation RI currently will have to hold off on the procedure at least for next 3 to 4 weeks. Patient will be at a higher risk given LV dysfunction, low EF, recent non-ST elevation RI specially in setting of extensive extension of the mass. (4) Ischemic cardiomyopathy: As seen on echocardiogram. For now euvolemic. Watch for fluid overload. (5) Left ventricular systolic dysfunction (LVSD): (6) Positive cardiac stress test: As above. (7) Goals of care, counseling/discussion: (8) Hypertension: (9) Noncompliance: Plan Hypertension: Goal blood pressure less than 140/90 mmHg. Continue with metoprolol 12.5 mg twice daily. Add losartan 50 mg oral daily. Will uptitrate medications as per goal blood pressures. DVT prophylaxis: Currently on full dose Lovenox for NSTEMI CODE STATUS: Discussed in detail with the patient. DNR/DNI. Carb consistent cardiac diet. Famotidine for PUD prophylaxis. Given the above with multiple reducible significant anterior wall mass with extensive parenchymal extension, advanced age, malnutrition with BMI of 18.8 will discuss further goals of care with patient and patient's family with options being medical management for non-ST elevation RI followed by mass removal as possible versus hospice. Also discussed patient is at a higher risk for adverse events to happen during surgery given all of the events. Family is going to talk further with the patient regarding further goals of care and would let us know. Discharge planning: Plan to discharge in next 24 hours patient remains hemodynamically stable and chest pain-free to back home with or without hospice as per family decision. Attestations Medical Necessity Statement*: Requires further hospitalization for management of non-ST elevation RI in a patient with squamous cell carcinoma of chest wall extending down to pericardium and encasing pulmonary artery Diagnoses NSTEMI (non-ST elevated myocardial infarction) I21.4 Diabetes E11.9 Diabetes mellitus complication status: without complication Diabetes mellitus long wall mining machine helper insulin use: without fci use Diabetes mellitus type: type 2 Squamous cell carcinoma of skin of chest C44.529 Ischemic cardiomyopathy I25.5 Left ventricular systolic dysfunction (LVSD) I51.9 Positive cardiac stress test R94.39 Goals of care, counseling/discussion Z71.89 Hypertension I10 Noncompliance Z91.199
[2023-03-19] MEDS: clopidogrel 75 mg Tablet PO (18:08)
[2023-03-19] MEDS: metformin 500 mg Tablet 1000 MG PO (18:08)
[2023-03-19 18:09] LABS: Glucose Point of Care 294 mg/dL (70-110)
[2023-03-19] MEDS: losartan 50 mg Tablet PO (18:11)
[2023-03-19] MEDS: atorvastatin 40 mg Tablet 80 MG PO (20:33)
[2023-03-19 20:59] LABS: Glucose Point of Care 257 mg/dL (70-110)
[2023-03-20 00:09] VITALS: BP 150/83; PULSE 70; RESP 18; TEMP 36.9; O2SAT 94
[2023-03-20 04:00] VITALS: BP 152/78; PULSE 66; RESP 16; TEMP 36.8; O2SAT 97
[2023-03-20 05:27] LABS: Basophils # 0.1 10^3/uL (0.0-0.1); Basophils % 0.7 %; Eosinophils # 0.3 10^3/uL (0.0-0.8); Eosinophils % 3.4 %; Hematocrit 38.3 % (37.0-47.0); Hemoglobin 12.2 g/dL (11.5-15.3); Lymphocytes # 2.2 10^3/uL (0.8-4.8); Lymphocytes % 29.7 %; Mean Corpuscular HGB Conc 31.9 g/dL (30.0-36.0); Mean Corpuscular Hemoglobin 30.1 pg (28.0-34.0); Mean Corpuscular Volume 94.6 fl (81-99); Mean Platelet Volume 9.8 fL (7.4-10.4); Monocytes # 0.6 10^3/uL (0.2-0.9); Monocytes % 8.3 %; Neutrophils # 4.29 10^3/uL (1.8-7.7); Neutrophils % 57.6 %; Nucleated Red Blood Cells % 0 %; Platelet Count 296 10^3/cmm (130-400); Red Blood Count 4.05 10^6/uL (4.1-5.3); White Blood Count 7.4 10^3/uL (4.0-10.0)
[2023-03-20 05:45] LABS: Alanine Aminotransferase < 5 U/L (0-33); Albumin Level 3.8 g/dL (3.5-5.2); Alkaline Phosphatase 78 U/L (35-105); Anion Gap 13.2 (5-19); Aspartate Amino Transferase 10 U/L (0-32); Blood Urea Nitrogen 18 mg/dL (8-23); Carbon Dioxide 26 mmol/L (22-29); Chloride 104 mmol/L (98-107); Globulin 3.7 g/dL (1.3-4.6); Glucose 184 mg/dL (65-115); Osmolality Calculated 295 mOsm/kg (285-295); Potassium 4.2 mmol/L (3.5-5.1); Sodium 139 mmol/L (136-145); Total Bilirubin 0.6 mg/dL (0.15-1.2); Total Protein 7.5 g/dL (6.6-8.7)
[2023-03-20] MEDS: enoxaparin 40 mg/0.4 mL Syringe SUBCUT (05:50)
[2023-03-20 06:00] VITALS: PULSE 67
[2023-03-20 06:11] LABS: Glucose Point of Care 211 mg/dL (70-110)
[2023-03-20 07:53] VITALS: PULSE 76; O2SAT 100
[2023-03-20 07:54] VITALS: BP 172/84; PULSE 74; RESP 16; TEMP 36.9; O2SAT 98
[2023-03-20] MEDS: cyanocobalamin 1,000 mcg/mL SDV 1000 MCG IM (08:36)
[2023-03-20] MEDS: clopidogrel 75 mg Tablet PO (08:36)
[2023-03-20] MEDS: metformin 500 mg Tablet 1000 MG PO (08:36)
[2023-03-20 08:37] VITALS: BP 198/92
[2023-03-20] MEDS: losartan 50 mg Tablet PO (08:37)
[2023-03-20] MEDS: sitagliptin 100 mg Tablet PO (08:37)
[2023-03-20] MEDS: metoprolol succinate ER (24 HR) 25 mg Tablet 12.5 MG PO (08:37)
[2023-03-20] MEDS: aspirin 81 mg EC Tablet PO (08:37)
--- NOTE | 2023-03-20 09:58 | PC.SOCIAL ---
[facility] IMM updated. Pg 2 of IMM dated and reviewed with pt. Copy provided to pt. Copy dated initialed and placed in chart.
--- NOTE | 2023-03-20 09:59 | PC.SOCIAL ---
IMM completed 03/20/23@1087
[2023-03-20 10:00] VITALS: BMI 20.4
[2023-03-20 11:23] LABS: Glucose Point of Care 246 mg/dL (70-110)
--- NOTE | 2023-03-20 11:41 | PM.DCS ---
Discharge Providers Date of Admission: 03/17/23 18:48 Date of Discharge: March 20, 2023 Attending Provider at Admission: Andriy Bhatia MD Attending Provider at Discharge: Andriy Bhatia MD Consults: Cardiology: Dr. Quinn Diagnoses at Discharge Discharge Diagnosis (1) NSTEMI (non-ST elevated myocardial infarction): Status: Acute (2) Ischemic cardiomyopathy: Status: Acute (3) Hypertension: Status: Acute (4) Diabetes: Status: Acute Qualifiers: Diabetes mellitus complication status: without complication Diabetes mellitus fci insulin use: without tank terminal gauger use Diabetes mellitus type: type 2 Qualified Code(s): E11.9 - Type 2 diabetes mellitus without complications (5) Noncompliance: Status: Acute (6) Squamous cell carcinoma of skin of chest: Status: Acute (7) Left ventricular systolic dysfunction (LVSD): Status: Acute (8) Positive cardiac stress test: Status: Acute (9) Goals of care, counseling/discussion: Status: Acute Reason for Visit Reason for Visit: chest pain/heart flutter Brief History: History as per HPI: Talisha Brown is a 87 year old female with past medical history of 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 She presents to the emergency room due to chest pain which has been ongoing for the past several weeks.? Patient not able to give me a clear timeline but states that she has had intermittent chest discomfort at least over the past 3 to 4 weeks.? She has not noticed any obvious exacerbating or relieving factors.? Chest pain is located in central chest, stabbing in nature, occurs both during exertion and rest.? She initially attributed it to the known squamous cell cancer on her anterior chest wall for which she has scheduled surgery in [place] on .? However when the pain became more frequent she presented to the emergency room today.? EKG did not show any acute ST-T wave changes.? Troponin baseline was at 625, trending up to 730 at 2 hours with a delta of over 100. Also has a known history of diabetes mellitus for which she is currently on metformin. Denies any recent cough.? Denies any dyspnea.? Denies any lower extremity swelling. As per patient she is due for a possible removal of squamous cell carcinoma from chest wall up at [facility] within next 1 week.? Patient has been noncompliant to her medications as per the daughter as she does not like taking medications because she thinks they make her sicker.? Patient has not been on aspirin or Plavix for many months. Hospital Course Hospital Course Patient was admitted to the hospital further evaluation and management of non-ST elevation ND. She was started on full dose anticoagulation. Cardiology was consulted and she underwent Lexiscan stress test on 03/18 which was reported positive with large size reversible perfusion abnormality of moderate to severe severity of mid to apical anterior, mid anteroseptal, mid inferior septal, mid to apical septal, apical anterior, apical lateral and apical inferior wall. Echocardiogram was done which showed EF of 35% with regional wall motion abnormality. Patient also underwent CTA which ruled out pulmonary embolism but showed significant anterior mediastinal mass and encasing the pulmonary trunk consistent with malignant neoplasm with chest wall and anterior pericardium invasion. Given all of the above cardiology recommended medical treatment. Given all of the above further goals of care discussions were done in detail with patient and patient's family at bedside. Hospice was offered. Patient would like to discuss further with her primary outpatient oncologist before making any further decision. She has been discharged in hemodynamically stable condition on oral aspirin, Plavix, statin, beta-zac along with antidiabetic medications. She is advised to check her blood sugar and blood pressure daily and maintain a diary and follow-up with a primary care provider in 1 week. She is to follow-up with her children's choir director in 1 week. Physical Exam Narrative: EXAM NARRATIVE: General: No acute distress, AO x3 HEENT: PERRLA, pupils bilaterally equal and reactive Chest: equal good air entry bilaterally CVS: S1-S2 regular, no murmurs, no tachycardia, no gallops, no rubs Abdomen: Soft, nontender, no organomegaly, bowel sounds present Neuro: No focal deficits, no facial deformity, AO x3, power 5/5 in all limbs Discharge Data Studies Completed and Pending Completed Studies During Hospitalization Category Date Time Status CT angio chest PE protcl [id number] Stat Cat Scan 03/18/23 09:30 Completed Sestamibi Stress Test Request Routine Exams 03/17/23 23:44 Draft XR chest 1V portable [id number] Urgent Exams 03/17/23 14:41 Completed NM brayan perf SPECT r/s* [id number] Routine Nuc Med 03/18/23 23:44 Completed CV. echo complete* [id number] Stat Ultrasound 03/17/23 17:18 Completed Pending at discharge Category Date Time Status Urine Culture Routine Lab 03/17/23 16:19 Received Radiology Impressions Chest X-Ray 03/17/23 14:41 IMPRESSION: No lobar consolidation or cardiac decompensation is appreciated with mild chronic air trapping and scarring appearance.No acute cardiopulmonary changes are appreciated. Chest CTA 03/18/23 09:30 IMPRESSION: 1. No pulmonary embolism. 2. 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 The mass encases and mildly narrows the pulmonary trunk. There is involvement of the anterior pericardium and chest wall invasion. There is no fat plane between mass and myocardium. There may be myocardial invasion. There is probable left anterior pleural invasion. 3. Left aortopulmonary window, hilar, and left epicardial lymphadenopathy. 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 4. Incidental findings above. 5. Tiny clustered subpleural nodules in the right upper lobe likely represent a low-grade infectious or inflammatory process of indeterminate chronicity. ADDENDUM: 03/18/23 0928 THIS REPORT CONTAINS FINDINGS THAT MAY BE CRITICAL TO PATIENT CARE. The referring physician could not be reached by telephone. The findings were verbally communicated via telephone conference with Marilee Webber at 9:26 AM CDT on 03/18/2023. The findings were acknowledged and understood, and will be relayed to the referring physician. Echocardiogram: ?CONCLUSIONS ?1. This is a technically difficult study. ?2. Normal left ventricular cavity size. Moderately decreased ?left ventricular systolic function.? Left ventricular ejection ?fraction is estimated at 35 %. Severe hypokinesis of basal to?mid anterior, basal to mid anteroseptal, inferoseptal, apical ?septal, apical anterior, apical inferior and apical matias. Grade?I diastolic dysfunction (abnormal relaxation filling pattern), ?normal to mildly elevated filling pressures. ?3.? No prior similar studies to compare. ?Codi Quinn MD ?(Electronically Signed) ?Final Date:? ? ? 18 March 2023 Lexiscan: PERFUSION FINDINGS ?Large sized perfusion abnormality of moderate to severe severity of mid?anteroseptal, mid inferoseptal, apical septal, apical anterior, apical lateral,?apical inferior and apical matias at rest images with reversibility in mid to?apical anterior and mid septal and apical matias on stress images. ?FUNCTIONAL RESULTS ? ? (calculated via Gated SPECT) ? Stress Image LV EF (%):? ? 60 ? Stress EDV (mL):67 ? TID:? 0.96 ? Stress ESV (mL):27 ?FUNCTIONAL FINDINGS: ?The left ventricle is dilated with stress. Transient Ischemia Dilatation of?0.96. ?There is moderately reduced left ventricular global systolic function. ?[place] of anterior, septal and apical matias. ?IMPRESSIONS ?1. Large sized reversible perfusion abnormality of moderate to severe severity?of mid to apical anterior, mid anteroseptal, mid inferoseptal, apical septal,?apical anterior, apical lateral, apical inferior and apical matias. ?2. This is suggestive of old myocardial infarction with large area of ischemia?in left anterior descending artery territory. ?3. Positive EKG changes with Lexiscan infusion.? Refer to separate report for?details. ?4.? Scan indicates high risk for cardiac events. Findings of the study were?discussed with the ordering physician. ?Codi Quinn MD ?(Electronically Signed) ?Final Date:? ? ? 18 March 2023 ? 13:06 Laboratory Results WBC 7.4 10^3/uL (4.0-10.0) 03/20/23 03:54 RBC 4.05 10^6/uL (4.1-5.3) L 03/20/23 03:54 Hgb 12.2 g/dL (11.5-15.3) 03/20/23 03:54 Hct 38.3 % (37.0-47.0) 03/20/23 03:54 MCV 94.6 fl (81-99) 03/20/23 03:54 MCH 30.1 pg (28.0-34.0) 03/20/23 03:54 MCHC 31.9 g/dL (30.0-36.0) 03/20/23 03:54 RDW 13.0 % (12.1-15.1) 03/20/23 03:54 Plt Count 296 10^3/cmm (130-400) 03/20/23 03:54 MPV 9.8 fL (7.4-10.4) 03/20/23 03:54 Neut % (Auto) 57.6 % 03/20/23 03:54 Lymph % (Auto) 29.7 % 03/20/23 03:54 [place] % (Auto) 8.3 % 03/20/23 03:54 Eos % (Auto) 3.4 % 03/20/23 03:54 Baso % (Auto) 0.7 % 03/20/23 03:54 Neut # (Auto) 4.29 10^3/uL (1.8-7.7) 03/20/23 03:54 Lymph # (Auto) 2.2 10^3/uL (0.8-4.8) 03/20/23 03:54 [place] # (Auto) 0.6 10^3/uL (0.2-0.9) 03/20/23 03:54 Eos # (Auto) 0.3 10^3/uL (0.0-0.8) 03/20/23 03:54 Baso # (Auto) 0.1 10^3/uL (0.0-0.1) 03/20/23 03:54 Nucleated RBC % (auto) 0 % 03/20/23 03:54 Nucleated RBCs # 0.0 /100WBC 03/20/23 03:54 D-Dimer 0.87 ug/mIFEU (0-0.59) H 03/17/23 16:40 Sodium 139 mmol/L (136-145) 03/20/23 03:54 Potassium 4.2 mmol/L (3.5-5.1) 03/20/23 03:54 Chloride 104 mmol/L (98-107) 03/20/23 03:54 Carbon Dioxide 26 mmol/L (22-29) 03/20/23 03:54 Anion Gap 13.2 (5-19) 03/20/23 03:54 BUN 18 mg/dL (8-23) 03/20/23 03:54 Creatinine 0.8 mg/dL (0.5-0.9) 03/20/23 03:54 GFR Calculation Not Reportable 03/20/23 03:54 Glucose 184 mg/dL (65-115) H 03/20/23 03:54 POC Glucose 246 mg/dL (70-110) H 03/20/23 11:15 Estimat Average Glucose 169 03/18/23 04:56 Hemoglobin A1c 7.5 % (4.0-6.0) H 03/18/23 04:56 Calculated Osmolality 295 mOsm/kg (285-295) 03/20/23 03:54 Calcium 10.0 mg/dL (8.5-10.5) 03/20/23 03:54 Phosphorus 2.4 mg/dL (2.5-4.5) L 03/18/23 04:56 Magnesium 1.5 mg/dL (1.7-2.3) L 03/18/23 04:56 Iron 28 ug/dL (37-145) L 03/17/23 15:12 TIBC 319 mcg/dl 03/17/23 15:12 % Saturation 8.7 % (20-50) L 03/17/23 15:12 Unsat Iron Binding 291 ug/dL (112-347) 03/17/23 15:12 Total Bilirubin 0.6 mg/dL (0.15-1.2) 03/20/23 03:54 AST 10 U/L (0-32) 03/20/23 03:54 ALT < 5 U/L (0-33) 03/20/23 03:54 Alkaline Phosphatase 78 U/L (35-105) 03/20/23 03:54 Troponin T Baseline 625 ng/L (0-10) H* 03/17/23 15:12 Troponin T 120 Minute 730.6 ng/L (0-10) H 03/17/23 16:40 Delta Troponin T 105.6 ABS# (0-10) H* 03/17/23 16:40 Troponin T Hi Sens 6Hr 679.4 ng/L (0-10) H 03/17/23 21:18 Troponin T Hi Sens 6Hr Delta 54.4 ng/L (0-12) H* 03/17/23 21:18 Total Protein 7.5 g/dL (6.6-8.7) 03/20/23 03:54 Albumin 3.8 g/dL (3.5-5.2) 03/20/23 03:54 Globulin 3.7 g/dL (1.3-4.6) 03/20/23 03:54 Triglycerides 106 mg/dL (0-150) 03/18/23 04:56 Cholesterol 159 mg/dL (0-200) 03/18/23 04:56 LDL Cholesterol, Calc 85 mg/dL (50-129) 03/18/23 04:56 HDL Cholesterol 53 mg/dL (60-100) L 03/18/23 04:56 LDL/HDL Ratio 1.60 RATIO (0.00-3.22) 03/18/23 04:56 Cholesterol/HDL Ratio 3.00 mg/dL (0.0-4.40) 03/18/23 04:56 Vitamin B12 150 pg/mL (232-1245) L 03/17/23 15:12 Folate 14.8 ng/mL (4.8-37.3) 03/18/23 04:56 Procalcitonin 0.04 ng/mL (0-0.5) 03/17/23 15:12 TSH 2.97 uIU/mL (0.27-4.20) 03/17/23 15:12 Urine Color Rocky (Yellow) 03/17/23 16:19 Urine Appearance Clear (CLEAR) 03/17/23 16:19 Urine pH 5 (5-7) 03/17/23 16:19 Ur Specific [place] 1.010 (1.005-1.030) 03/17/23 16:19 Urine Protein Trace (Negative) 03/17/23 16:19 Urine Glucose (UA) Norm (Normal) 03/17/23 16:19 Urine Ketones Negative (Negative) 03/17/23 16:19 Urine Blood 3+ (Negative) H 03/17/23 16:19 Urine Nitrate Negative (Negative) 03/17/23 16:19 Urine Bilirubin Neg (Negative) 03/17/23 16:19 Urine Urobilinogen Norm mg/dL (Negative) 03/17/23 16:19 Ur Leukocyte Esterase Trace (Negative) H 03/17/23 16:19 Urine RBC 0-4 /hpf (0-2) H 03/17/23 16:19 Urine WBC 0-4 /hpf (0-5) H 03/17/23 16:19 Ur Squamous Epith Cells 0-4 /hpf (0-5) H 03/17/23 16:19 Amorphous Sediment Not Reportable 03/17/23 16:19 Urine Bacteria 4+ /hpf (NONE) H 03/17/23 16:19 Vitals Last Vital Signs Temp 98.5 F 03/20/23 07:54 Pulse 74 03/20/23 07:54 Resp 16 03/20/23 07:54 BP 198/92 03/20/23 08:37 Pulse Ox 98 03/20/23 07:54 O2 Del Method Room Air 03/20/23 07:54 FiO2 21 03/20/23 08:00 Discharge Plan Discharge Patient Disposition: Home Condition: Stable Prescriptions: New losartan 50 mg Tablet 75 mg PO DAILY 30 Days Qty: 45 0RF atorvastatin 40 mg Tablet 40 mg PO BEDTIME Qty: 30 0RF clopidogrel 75 mg Tablet 75 mg PO DAILY Qty: 30 0RF aspirin 81 mg Tablet,Delayed Release (Dr/Ec) 81 mg PO DAILY Qty: 30 0RF Januvia 100 mg Tablet 100 mg PO DAILY Qty: 30 0RF Coreg 6.25 mg tablet 6.25 mg PO Q12H Qty: 60 0RF Rx Instructions: must administer with a meal/food tramadol 50 mg tablet 50 mg PO Q8H PRN (Reason: pain) Qty: 14 0RF cyanocobalamin (vitamin B-12) 1,000 mcg capsule 1,000 mcg PO DAILY Qty: 30 0RF Changed metformin 500 mg Tablet 1,000 mg PO BID Qty: 120 0RF Discontinued metoprolol succinate 25 mg Tablet Extended Release 24 Hr 12.5 mg PO BID Discharge Orders: Discharge Order (Routine); Ordered 03/20/23 Ordered By: Andriy Bhatia Referrals: Niya [Other] - 03/25/23 11:15 am (Please arrange follow up with Eyal Segura. [phone].) Discharge Diet: Cardiac and Diabetic Discharge Activity: Resume usual activity and Increase activity as tolerated Patient Instructions: Opioid Safety, Post Heart Attack Stoplight Activity Restrictions/Additional Instructions: Please make sure you are compliant with your medications. Please take aspirin, Plavix, statins daily. For blood pressure you will be on Coreg 6.25 mg twice daily and losartan 75 mg daily. For diabetes you will be on Januvia and metformin. Please check your blood pressures daily and blood sugar daily and maintain a diary and follow-up with a primary care provider within next 1 week. Please follow-up with your outpatient children's choir director within next 1 week. Discharge Attestations Time Spent in Discharge Care*: greater than 30 min Specific Discharge Activities: educating patient, educating and/or supporting family/caregiver, discussing with pcp/other providers, discussing with clinical case manager/social workers/dc planners, documenting/other paperwork and evaluating patient/reviewing data Quality Metrics Clinical Quality Measures [ Acute Myocardial Infaction { Clinical Trial Participant: No; Contraindication to aspirin: None; Aspirin prescribed; Contraindication to statin: None; Statin prescribed; Contraindication to PCI: Medical contraindication; Contraindication to Fibrinolytics: None; fibrinolytics given}] Coding Level of Care Code 39032 Total time (in minutes) for Discharge: 60 Diagnoses NSTEMI (non-ST elevated myocardial infarction) I21.4 Ischemic cardiomyopathy I25.5 Hypertension I10 Diabetes E11.9 Diabetes mellitus complication status: without complication Diabetes mellitus fci insulin use: without tank terminal gauger use Diabetes mellitus type: type 2 Noncompliance Z91.199 Squamous cell carcinoma of skin of chest C44.529 Left ventricular systolic dysfunction (LVSD) I51.9 Positive cardiac stress test R94.39 Goals of care, counseling/discussion Z71.89
[2023-03-20] MEDS: morphine 4 mg/mL SDV 1 mL 2 MG IVP (12:14)
--- NOTE | 2023-03-20 13:23 | PC.NURSE ---
Discharge Note Patient discharged to home via pv accompanied by family. Discharge instructions reviewed with patient and/or entry level sales representative. Mobile pharmacy medications and/or prescriptions provided. Belongings/home medications returned.
--- NOTE | 2023-03-20 22:29 | P.PN_ITS ---
Subjective Subjective: Patient was seen earlier today.No arrhythmias, no other events overnight Medications: Reviewed: Yes Vitals/I&O/Wt Last Vital Signs Temp 98.5 F 03/20/23 07:54 Pulse 74 03/20/23 07:54 Resp 16 03/20/23 07:54 BP 198/92 03/20/23 08:37 Pulse Ox 98 03/20/23 07:54 O2 Del Method Room Air 03/20/23 07:54 FiO2 21 03/20/23 08:00 03/20/23 03/20/23 03/20/23 06:59 14:59 22:59 Intake Total 60 / 1671 240 / 240 Balance 60 / 1671 240 / 240 Weight last 48 hrs Weight 101 lb 1 oz Weight 101 lb 1 oz Physical Exam Narrative: Gen: NAD, frail elderly lady sitting in bed HEENT/Neck: No JVD, murmur or gallop RS: CTAB/L, anterior chest wall malignant lesion on left upper chest CVS: S1, S2, regular, No murmur, rub or gallop PA: soft, NT, ND, BS2+ 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 -echo with LV function with LAD territory RWMA -Large reversible ischemia on LAD territory on stress test. -continue medical management with ASA, plavix, statin and beta zac. (2) Ischemic cardiomyopathy: LVEF=35% on last echo. (3) Hypertension: (4) Diabetes: Qualifiers: Diabetes mellitus complication status: without complication Diabetes mellitus alf insulin use: without alf use Diabetes mellitus type: type 2 Qualified Code(s): E11.9 - Type 2 diabetes mellitus without complications (5) Noncompliance: Plan CAD s/p CABG HLD SCC of anterior chest wall : not a good candidate for sx Advanced age Fraility Attestations Medical Necessity Statement*: stable to be discharged Coding Level of Care Code 83185 Diagnoses NSTEMI (non-ST elevated myocardial infarction) I21.4 Ischemic cardiomyopathy I25.5 Hypertension I10 Diabetes E11.9 Diabetes mellitus complication status: without complication Diabetes mellitus alf insulin use: without terminal press operator use Diabetes mellitus type: type 2 Noncompliance Z91.199
== END 2023-03-20 13:26 | disposition home or self-care (01) | DRG 281 ==
LOC: ER 15:51 → CSU 17:39
PROVIDERS: Physician Assistant; Admitting Provider Student in an Organized Health Care Education/Training Program; Emergency Provider Emergency Medicine; Visit Provider Student in an Organized Health Care Education/Training Program
DX: I21.4 Non-ST elevation (NSTEMI) myocardial infarction (principal); I50.22 Chronic systolic (congestive) heart failure; I25.5 Ischemic cardiomyopathy; I11.0 Hypertensive heart disease with heart failure; E11.65 Type 2 diabetes mellitus with hyperglycemia; T50.916A Underdosing of multiple unspecified drugs, medicaments and biological substances, initial encounter; Z91.128 Patient's intentional underdosing of medication regimen for other reason; I25.10 Atherosclerotic heart disease of native coronary artery without angina pectoris; Z95.1 Presence of aortocoronary bypass graft; E78.5 Hyperlipidemia, unspecified; C44.529 Squamous cell carcinoma of skin of other part of trunk; Z85.820 Personal history of malignant melanoma of skin
CPT/HCPCS: 36415; 36416; 71045; 71275; 78452; 80053; 80061; 81001; 82607; 82746; 82962; 83036; 83540; 83550; 83735; 84100; 84145; 84443; 84484; 85025; 85378; 87077; 87086; 87186; 93005; 93017; 93306; 94664; 96372; 96375; 99285; A9500; J1650; J2270; J2785; J3420; J3475; Q9967

== ENCOUNTER 2023-12-09 18:11 | Inpatient (IN) | payer MEDICARE, SELFPAY ==
[2023-12-09] VITALS (7 sets, daily range): BP systolic 123–178; BP diastolic 70–85; PULSE 62–83; RESP 16–18; TEMP 36.5–37; O2SAT 93–100; BMI 16.9
--- NOTE | 2023-12-09 18:29 | ED_ITS ---
HPI - Female Genitourinary 2 General: Chief complaint: Urogenital-Female Stated complaint: possible uti Time Seen by Provider: 12/09/23 18:23 Source: patient and family Mode of arrival: ambulatory Limitations: no limitations History of Present Illness: 88-year-old female who is here with harvey corcoran states that she has had some confusion and weakness he states they are concerned that she may have a UTI because she gets like this when she gets urinary tract infections patient here able tell me her name and answer most of my questions she denies any pain anywhere has had no fevers. Associated symptoms: Deny abdominal pain, headache(s) or nausea Review of Systems 2 Const: Denies: fever(s), chills, body aches or change in appetite ENMT: Denies: throat pain or dental pain Card: Denies: chest pain Resp: Denies: dyspnea GI: Denies: abdominal pain, nausea, vomiting or diarrhea : Reports: urinary frequency Musc: Denies: neck pain or back pain Skin/Breast: Denies: rash Neuro: Reports: confusion; Denies: headache(s) PFSH ED 2 PFSH: Medical History Hypertension Left ventricular systolic dysfunction (LVSD) Ischemic cardiomyopathy Melanoma Squamous cell carcinoma of skin of chest Coronary artery disease Surgical History Hx of CABG Physical Exam 2 Const: COMMON NORMALS: no acute distress, healthy appearing and alert HENMT: COMMON NORMALS: normocephalic and atraumatic HEAD & SCALP: n ormocephalic and atraumatic Eye: COMMON NORMALS: Equal, round and reactive pupils present and EOMs intact bilaterally PUPIL: Yes Equal, round and reactive pupils present Neck/C-Spine: COMMON NORMALS: full ROM and supple Chest: COMMONS NORMALS: normal inspection of the chest and normal palpation of entire chest wall Resp: COMMON NORMALS: normal respiratory effort, No retractions and No use of accessory muscles OTHER: decreased breath sounds on left Cardio: COMMON NORMALS: regular rate and regular rhythm RATE: regular rate RHYTHM: regular rhythm OTHER: systolic murmur GI: COMMON NORMALS: Normal to inspection, nondistended, normoactive bowel sounds present, Soft to palpation, non-tender and no masses PALPATION: Yes Soft to palpation Extremity: COMMON NORMALS: normal to inspection and full ROM Neuro: COMMON NORMALS: moves all extremities and no focal motor deficits S ENSORIUM/ORIENTATION: Yes alert Psych: COMMON NORMALS: mental status grossly normal, Normal thought process present and cooperative THOUGHT PROCESS: Normal thought process present Skin: COMMON NORMALS: no rashes or lesions noted and no wounds GENERAL SKIN EXAM: no rashes or lesions noted Course 2 Vital Signs: Vital signs: Vital Signs Temperature 98.1 F 12/09/23 18:20 Pulse Rate 79 12/09/23 19:41 Respiratory Rate 18 12/09/23 19:41 Blood Pressure 160/85 12/09/23 19:41 Pulse Oximetry 94 12/09/23 19:41 Oxygen Delivery Me thod Room Air 12/09/23 18:20 MDM - Female Medical Decision Making Patient presents here with some increased weakness she is found to have pleural effusion and pneumonia on her x-ray she has been in no distress here we will admit for antibiotics. Medical Records I reviewed the patient's medical records. Lab Data I reviewed the patient's lab results. 12/09/23 17:00 12/09/23 17:[address] 12/09/23 18:30 IMPRESSION: 1. No acute intracranial pathology. 2. Senescent changes. Chest X-Ray 12/09/23 18:48 IMPRESSION: Moderate left pleural effusion with adjacent atelectasis and/or consolidation. Laboratory Results WBC 6.46 10^3/uL (3.29-11.43) 12/09/23 17:00 RBC 4.53 10^6/uL (3.85-5.65) 12/09/23 17:00 Hgb 12.00 g/dL (11.27-16.99) 12/09/23 17:00 Hct 39.6 % (36-47) 12/09/23 17:00 MCV 87.4 fl (85-98) 12/09/23 17:00 MCH 26.5 pg (27-33) L 12/09/23 17:00 MCHC 30.3 g/dL (30-55) 12/09/23 17:00 RDW 14.1 % (12.1-15.1) 12/09/23 17:00 Plt Count 362 10^3/cmm (157-399) 12/09/23 17:00 MPV 9.6 fL (7.4-10.4) 12/09/23 17:00 Neut % (Auto) 62.1 % 12/09/23 17:00 Lymph % (Auto) 24.9 % 12/09/23 17:00 [place] % (Auto) 9.6 % 12/09/23 17:00 Eos % (Auto) 2.0 % 12/09/23 17:00 Baso % (Auto) 1.2 % 12/09/23 17:00 Neut # (Auto) 4.01 10^3/uL (1.8-7.7) 12/09/23 17:00 Lymph # (Auto) 1.6 10^3/uL (0.8-4.8) 12/09/23 17:00 [place] # (Auto) 0.6 10^3/uL (0.2-0.9) 12/09/23 17:00 Eos # (Auto) 0.1 10^3/uL (0.0-0.8) 12/09/23 17:00 Baso # (Auto) 0.1 10^3/uL (0.0-0.1) 12/09/23 17:00 Nucleated RBC % (auto) 0 % 12/09/23 17:00 Nucleated RBCs # 0.0 /100WBC 12/09/23 17:00 Sodium 140 mmol/L (136-145) 12/09/23 17:00 Potassium 4.5 mmol/L (3.5-5.1) 12/09/23 17:00 Chloride 104 mmol/L (98-107) 12/09/23 17:00 Carbon Dioxide 23 mmol/L (22-29) 12/09/23 17:00 Anion Gap 17.5 (5-19) 12/09/23 17:00 BUN 16 mg/dL (8-23) 12/09/23 17:00 Creatinine 0.7 mg/dL (0.5-0.9) 12/09/23 17:00 GFR Calculation Not Reportable 12/09/23 17:00 Glucose 150 mg/dL (65-115) H 12/09/23 17:00 Calculated Osmolality 294 mOsm/kg (285-295) 12/09/23 17:00 Calcium 10.3 mg/dL (8.5-10.5) 12/09/23 17:00 Total Bilirubin 0.4 mg/dL (0.15-1.2) 12/09/23 17:00 AST 21 U/L (0-32) 12/09/23 17:00 ALT < 5 U/L (0-33) 12/09/23 17:00 Alkaline Phosphatase 92 U/L (35-105) 12/09/23 17:00 Total Protein 7.6 g/dL (6.6-8.7) 12/09/23 17:00 Albumin 3.8 g/dL (3.5-5.2) 12/09/23 17:00 Globulin 3.8 g/dL (1.3-4.6) 12/09/23 17:00 Urine Color Yellow (Yellow) 12/09/23 18:58 Urine Appearance Clear (CLEAR) 12/09/23 18:58 Urine pH 5 (5-7) 12/09/23 18:58 Ur Specific [place] 1.015 (1.005-1.030) 12/09/23 18:58 Urine Protein Neg (Negative) 12/09/23 18:58 Urine Glucose (UA) Norm (Normal) 12/09/23 18:58 Urine Ketones Negative (Negative) 12/09/23 18:58 Urine Blood 2+ (Negative) H 12/09/23 18:58 Urine Nitrate Negative (Negative) 12/09/23 18:58 Urine Bilirubin Neg (Negative) 12/09/23 18:58 Urine Urobilinogen Norm mg/dL (Negative) 12/09/23 18:58 Ur Leukocyte Esterase Trace (Negative) H 12/09/23 18:58 Urine RBC 0-4 /hpf (0-2) H 12/09/23 18:58 Urine WBC 5-10 /hpf (0-5) H 12/09/23 18:58 Ur Squamous Epith Cells 0-4 /hpf (0-5) H 12/09/23 18:58 Amorphous Sediment Not Reportable 12/09/23 18:58 Urine Bacteria None /hpf (NONE) 12/09/23 18:58 Urine Mucus None /hpf 12/09/23 18:58 All radiology interpretation(s) finalized by discharge Discharge Plan Discharge Patient Disposition: Admitted As Inpatient Clinical Impression: Pneumonia, Pleural effusion Condition: Stable Prescriptions: No Action atorvastatin 40 mg Tablet 40 mg PO BEDTIME Qty: 30 0RF clopidogrel 75 mg Tablet 75 mg PO DAILY Qty: 30 0RF aspirin 81 mg Tablet,Delayed Release (Dr/Ec) 81 mg PO DAILY Qty: 30 0RF Januvia 100 mg Tablet 100 mg PO DAILY Qty: 30 0RF Coreg 6.25 mg tablet 6.25 mg PO Q12H Qty: 60 0RF Rx Instructions: must administer with a meal/food metformin 500 mg Tablet 1,000 mg PO BID Qty: 120 0RF tramadol 50 mg tablet 50 mg PO Q8H PRN (Reason: pain) Qty: 14 0RF cyanocobalamin (vitamin B-12) 1,000 mcg capsule 1,000 mcg PO DAILY Qty: 30 0RF Coding 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
--- NOTE | 2023-12-09 18:30 | CTR_ITS ---
PROCEDURE INFORMATION: Exam: CT Head Without Contrast Exam date and time: 12/09/2023 6:36 PM Age: 88 years old Clinical indication: Altered mental status/memory loss; Additional info: AMS TECHNIQUE: Imaging protocol: Computed tomography of the head without contrast. Radiation optimization: All CT scans at this facility use at least one of these dose optimization techniques: automated exposure control; mA and/or kV adjustment per patient size (includes targeted exams where dose is matched to clinical indication); or iterative reconstruction. COMPARISON: No relevant prior studies available. RADIATION DOSE METRICS: Total DLP (mGy-cm): 916.08 FINDINGS: Brain: There is mbky-ka-ahqhbpyz cerebral atrophy. There are [id number]-ee-[id number] deep white matter microangiopathic ischemic changes. No acute hemorrhage is identified. No mass or mass effect is identified. Cerebral ventricles: Moderately dilated ventricles secondary to atrophy. Paranasal sinuses: Visualized sinuses are unremarkable. No fluid levels. Mastoid air cells: Visualized mastoid air cells are well aerated. Bones/joints: Unremarkable. No acute fracture. Soft tissues: Unremarkable. CT/CT head wo con* [id number] IMPRESSION: 1. No acute intracranial pathology. 2. Senescent changes.
--- NOTE | 2023-12-09 18:48 | XRR_ITS ---
PROCEDURE INFORMATION: Exam: XR Chest Exam date and time: 12/09/2023 6:55 PM Age: 88 years old Clinical indication: Other: AMS; Prior surgery; Surgery date: 6+ months; Surgery type: Open heart TECHNIQUE: Imaging protocol: Radiologic exam of the chest. Views: 1 view. COMPARISON: 1. CT angio chest PE protcl [id number] 03/18/2023 8:18 AM 2. Chest radiograph 03/17/2023. FINDINGS: Lungs: The right lung is clear. Pleural spaces: Moderate left pleural effusion with adjacent atelectasis and/or consolidation. No pneumothorax. Heart/Mediastinum: Stable cardiomediastinal silhouette. Bones/joints: No acute osseous abnormality. XR/XR chest 1V portable [id number] IMPRESSION: Moderate left pleural effusion with adjacent atelectasis and/or consolidation.
[2023-12-09 19:08] LABS: Specific Gravity, Urine 1.015 (1.005-1.030); Urine Appearance Clear (CLEAR); Urine Color Yellow (Yellow); pH Urine 5 (5-7)
[2023-12-09 19:09] LABS: Add Urine Microscopic? YES; Bilirubin Urine Neg (Negative); Blood Urine 2+ (Negative); Glucose Urine UA Norm (Normal); Ketones Urine Negative (Negative); Leukocyte Esterase Urine Trace (Negative); Nitrate Urine Negative (Negative); Protein Urine Neg (Negative); Urobilinogen Urine Norm (Negative)
[2023-12-09 19:11] LABS: Basophils # 0.1 10^3/uL (0.0-0.1); Basophils % 1.2 %; Eosinophils # 0.1 10^3/uL (0.0-0.8); Hematocrit 39.6 % (36-47); Lymphocytes # 1.6 10^3/uL (0.8-4.8); Lymphocytes % 24.9 %; Mean Corpuscular HGB Conc 30.3 g/dL (30-55); Mean Corpuscular Hemoglobin 26.5 pg (27-33); Mean Corpuscular Volume 87.4 fl (85-98); Mean Platelet Volume 9.6 fL (7.4-10.4); Monocytes # 0.6 10^3/uL (0.2-0.9); Monocytes % 9.6 %; Neutrophils # 4.01 10^3/uL (1.8-7.7); Neutrophils % 62.1 %; Nucleated Red Blood Cells % 0 %; Platelet Count 362 10^3/cmm (157-399); Red Blood Count 4.53 10^6/uL (3.85-5.65); Red Cell Distribution Width 14.1 % (12.1-15.1); White Blood Count 6.46 10^3/uL (3.29-11.43)
[2023-12-09] MEDS: sodium chloride 0.9% 1,000 ML 999 ML IV (19:23)
[2023-12-09] MEDS: cefTRIAXone 1,000 MG in sodium chloride 0.9% (plus) 50 ML 100 MG IV (19:24)
[2023-12-09 19:27] LABS: RBC Urine 0-4 /hpf (0-2); Squamous Epithelial Cell Urine 0-4 /hpf (0-5)
[2023-12-09 19:28] LABS: Add Urine Culture? No
[2023-12-09 19:36] LABS: Alanine Aminotransferase < 5 U/L (0-33); Albumin Level 3.8 g/dL (3.5-5.2); Alkaline Phosphatase 92 U/L (35-105); Blood Urea Nitrogen 16 mg/dL (8-23); Calcium 10.3 mg/dL (8.5-10.5); Carbon Dioxide 23 mmol/L (22-29); Chloride 104 mmol/L (98-107); Creatinine Clr Calc Pharmacy 29.8003; Globulin 3.8 g/dL (1.3-4.6); Glucose 150 mg/dL (65-115); Osmolality Calculated 294 mOsm/kg (285-295); Sodium 140 mmol/L (136-145); Total Bilirubin 0.4 mg/dL (0.15-1.2); Total Protein 7.6 g/dL (6.6-8.7)
[2023-12-09] MEDS: azithromycin 500 MG in sodium chloride 0.9% 250 ML 250 MG IV (19:47)
[2023-12-09 20:05] LABS: Anion Gap 17.5 (5-19); Aspartate Amino Transferase 21 U/L (0-32); Potassium 4.5 mmol/L (3.5-5.1)
[2023-12-09 20:33] LABS: NT Pro B Type Natriuretic Pept 2738 pg/mL (0-450)
--- NOTE | 2023-12-09 20:53 | P.HP_ITS ---
Providers/Chief Complaint 2 Admitting Physician: Brandon Dinero MD Chief Complaint: possible uti History of Present Illness Talisha Brown is a 88 year old female With a past medical history of with with a past medical history of diabetes, hypertension, melonoma of the face, CAD, with a history of CABG, EF of 35%, not deemed a surgical/interventional candidate given patient's underlying malignancy, history of squamous cell carcinoma of the chest anterior mediastinal mass extending down to involve the anterior and posterior pericardium with pleural invasion, encompassing the pulmonary trunk, not deemed a surgical candidate after seeing specialist in [facility], who was admitted in [facility] in [place] back in August 2023, admitted for UTI, and had a further workup was given 2 months to live, who presents to [facility] due to altered mental status, slurring of words, left-sided weakness. Currently patient is alert to person, not to place, not to time she can follow commands she is able to smile for me, she is able to lift both legs off the gurney, she is able to squeeze both my fingers I cannot discern any focal neurologic deficits pupils equal round reactive to light, however she does have some global encephalopathy she is quite fidgety, try to get up out of bed, gets easily distracted, at times she talks to herself, I cannot discern any slurring of her words. According to family when she was hospitalized back in August 30 at [facility], for UTI, she was given 2 months to live, she was supposed to have hospice [facility] set up, apparently there was some issues between getting it set up between [place] in [place], so she was on it temporarily through [place] office, but I never got set up in [place] so currently she is not on hospice. According to family, she has been deconditioned for the last few months, poor appetite, her voice has changed, she has a high-pitched voice she has trouble swallowing, poor appetite, she has been more unsteady on her feet, but she can ambulate, she can feed herself, this morning they had noticed that she has become increasingly confused, encephalopathic she would try to eat from a coffee cup, with a spoon, the son-in-law noticed that she had some slurring of her words some left-sided deficits, they are worried about her having a urinary tract infection so she was brought to [facility] for evaluation Review of Systems 2 Const: Denies: fever(s) Card: Reports: chest pain Resp: Denies: dyspnea Neuro: Denies: headache(s) Medications/Allergies Home Medications Medication Instructions Recorded Confirmed Last Taken Type aspirin 81 mg tablet,delayed 81 mg PO DAILY #30 tabs 03/20/23 Unknown Rx release atorvastatin 40 mg tablet 40 mg PO BEDTIME #30 tabs 03/20/23 Unknown Rx carvedilol 6.25 mg tablet (Coreg) 6.25 mg PO Q12H #60 tabs 03/20/23 Unknown Rx clopidogrel 75 mg tablet 75 mg PO DAILY #30 tabs 03/20/23 Unknown Rx cyanocobalamin (vitamin B-12) 1,000 mcg PO DAILY #30 caps 03/20/23 Unknown Rx 1,000 mcg capsule metformin 500 mg tablet 1,000 mg (2 x 500 mg) PO BID #120 03/20/23 03/17/23 Unknown Rx tabs sitagliptin phosphate 100 mg 100 mg PO DAILY #30 tabs 03/20/23 Unknown Rx tablet (Januvia) tramadol 50 mg tablet 50 mg PO Q8H PRN pain #14 tabs 03/20/23 Unknown Rx Allergies Allergy/AdvReac Type Severity Reaction Status Date / Time No Known Allergies Allergy Verified 03/17/23 16:28 PFSH Acute 2 PFSH: Medical History Hypertension Left ventricular systolic dysfunction (LVSD) Ischemic cardiomyopathy Melanoma Squamous cell carcinoma of skin of chest Coronary artery disease Surgical History Hx of CABG Vitals/I&O/Wt Last Vital Signs Temp 98.1 F 12/09/23 18:20 Pulse 79 12/09/23 19:41 Resp 18 12/09/23 19:41 BP 160/85 12/09/23 19:41 Pulse Ox 94 12/09/23 19:41 O2 Del Method Room Air 12/09/23 18:20 12/09/23 12/09/23 12/09/23 06:59 14:59 22:59 Intake Total 1300 / 1300 Balance 1300 / 1300 Weight last 48 hrs Weight 38.102 kg Physical Exam 2 Const: COMMON NORMALS: no acute distress EXAM LIMITATIONS: altered mental status ORIENTATION/CONSCIOUSNESS: Yes awake, Yes oriented to person and Yes confused; not oriented to place and not oriented to time HENMT: OTHER: Left face, melanoma Eye: COMMON NORMALS: Equal, round and reactive pupils present Neck/C-Spine: OTHER: Gross cervical lymphadenopathy Resp: COMMON NORMALS: normal respiratory effort, No retractions, No use of accessory muscles and clear to auscultation bilaterally AUSCULTATION: clear to auscultation bilaterally Cardio: COMMON NORMALS: no JVD, regular rate, regular rhythm, S1 normal heart sound present and S2 normal heart sound present RATE: regular rate RHYTHM: regular rhythm HEART SOUNDS: S1 normal heart sound present and S2 normal heart sound present GI: COMMON NORMALS: Normal to inspection, nondistended, normoactive bowel sounds present, Soft to palpation and non-tender Neuro: COMMON NORMALS: CN's II-XII intact bilaterally, moves all extremities and no focal motor deficits Skin: NARRATIVE SKIN EXAM: Chest, skin lesion, measuring 10 cm across 5 cm wide, irregular borders, has features of necrosis, increased drainage, erythema, Data 12/09/23 17:00 12/09/23 17:00 Micro: Microbiology 12/09/23 19:20 Blood Culture - Preliminary Blood SPECIMEN COLLECTED 12/09/23 19:15 Blood Culture - Preliminary Blood SPECIMEN COLLECTED A&P Assessment and plan (1) Goals of care, counseling/discussion: (2) Protein calorie malnutrition: (3) Cancer cachexia: (4) Ischemic cardiomyopathy: (5) NSTEMI (non-ST elevated myocardial infarction): (6) Squamous cell carcinoma of skin of chest: (7) Metastatic squamous cell carcinoma: (8) Diabetes: Qualifiers: Diabetes mellitus complication status: without complication Diabetes mellitus intermediate insulin use: without data operations leader use Diabetes mellitus type: t ype 2 Qualified Code(s): E11.9 - Type 2 diabetes mellitus without complications (9) Pleural effusion: (10) Acute encephalopathy: (11) TIA (transient ischemic attack): Plan Acute encephalopathy ? She does have features related to TIA, slurring of words left-sided weakness, currently her NIH stroke scale is difficult to ascertain given her global encephalopathy but I would say with 0, she is already on aspirin and Plavix which we can continue for now ? Certainly UTI could be playing a role however she does not have any leukocytosis her UA is relatively unremarkable, will continue Rocephin for now ? The emergency room was concerned for possible pneumonia as a cause, she has a very large left pleural effusion, it is difficult to ascertain if there could be a pneumonia in that region, but felt to be unlikely she is currently on room air, I do not hear any wheezing on exam, ordered inflammatory markers, continue Rocephin for now -Likelihood of her acute cephalopathy is likely metastasis of her squamous cell carcinoma -Back in August family told me that after workup done at the [facility] they told her that she only has 2 to 3 months to live, -Based on clinical exam her cervical lymphadenopathy her high-pitched stridor on exam, her skin examination of the anterior chest wall shows large necrotic mass on examination which patient has covered, I am worried that that mass is invading her airway, also affecting her swallowing, likely intracranial metastasis, ? And with that her encephalopathy, certainly intracranial metastasis is a high likelihood with possible subclinical seizures could be a significant cause ? She is DNR/DNI family does not want aggressive measures, they do want surgery and want a feeding tube, above all they want her to be comfortable, would prefer hospice ? For now I will hold off on doing any further workup including an MRI, CT chest abdomen pelvis, as I do not feel it would change anything in her management ? For now I will continue Rocephin, ? Continue morphine pain control ? Ativan to help with agitation, and anxiety ? Tomorrow morning we will reach out to hospice team and potentially set up hospice for her -Family is agreeable to take her home on hospice tomorrow -History of ischemic cardiomyopathy, NSTEMI, back in March, EF of 35% not deemed a candidate for intervention given her underlying malignancy squamous cell carcinoma of the chest at that time -Will also get records from [facility] -Trouble swallowing, continue clear liquids, have speech therapy see her, if patient indeed certainly goes on hospice can set up an regular diet, patient's family does tell me that she has trouble swallowing medications, specifically pain medications, we can certainly help set up liquid morphine and Ativan for her tomorrow once hospice is set up -Cancer cachexia, protein calorie malnutrition -DNR/DNI Attestations 2 Medical Necessity Statement*: Patient requires hospitalization, inpatient, greater than 2 midnights, for acute encephalopathy, concerns for TIA, UTI, pneumonia, metastatic squamous cell carcinoma of the chest to the anterior posterior mediastinum, melanoma, deconditioning, protein, nutrition Diagnoses Goals of care, counseling/discussion Z71.89 Protein calorie malnutrition E46 Cancer cachexia R64 Ischemic cardiomyopathy I25.5 NSTEMI (non-ST elevated myocardial infarction) I21.4 Squamous cell carcinoma of skin of chest C44.529 Metastatic squamous cell carcinoma Diabetes E11.9 Diabetes mellitus complication status: without complication Diabetes mellitus intermediate insulin use: without data operations leader use Diabetes mellitus type: type 2 Pleural effusion J90 Acute encephalopathy G93.40 TIA (transient ischemic attack) G45.9
[2023-12-09 21:21] LABS: Erythrocyte Sedimentation Rate 15 mm/hr (0-15)
[2023-12-09 21:24] LABS: Troponin(5th) Baseline 203 ng/L (0-10)
[2023-12-09] MEDS: pantoprazole 40 mg SDV IVP (21:24)
[2023-12-09] MEDS: LORazepam 2 mg/mL INJ 10 mL MDV 0.5 MG IVP (21:24)
[2023-12-09 21:29] LABS: Lactic Sepsis W/Reflex 1.2 mmol/L (0.5-2.2)
[2023-12-09] MEDS: atorvastatin 40 mg Tablet PO (21:29)
[2023-12-09] MEDS: carvedilol 6.25 mg Tablet PO (21:29)
[2023-12-09] MEDS: enoxaparin 40 mg/0.4 mL Syringe SUBCUT (21:32)
[2023-12-09 21:39] LABS: Procalcitonin 0.04 ng/mL (0-0.5); Thyroid Stimulating Hormone 4.48 uIU/mL (0.27-4.20)
[2023-12-09 21:50] LABS: C Reactive Protein 10.4 mg/L (0.0-4.9)
[2023-12-09 22:11] LABS: Troponin 5 2HR Delta -20.1 ABS# (0-10)
[2023-12-09 22:12] LABS: Troponin 5 2HR 182.9 ng/L (0-10)
[2023-12-10] MEDS: haloperidol inj 5 mg/mL INJ 1 mL 1 MG IM ×2 (00:11→04:11)
[2023-12-10 01:02] LABS: Troponin 5 6HR Delta -15.3 ng/L (0-12)
[2023-12-10 01:03] LABS: Troponin 5 6HR 187.7 ng/L (0-10)
[2023-12-10] MEDS: LORazepam 2 mg/mL INJ 10 mL MDV 0.5 MG IVP (01:54)
[2023-12-10] MEDS: aspirin 81 mg EC Tablet PO (08:32)
[2023-12-10] MEDS: carvedilol 6.25 mg Tablet PO (08:32)
[2023-12-10] MEDS: clopidogrel 75 mg Tablet PO (08:32)
--- NOTE | 2023-12-10 08:58 | PC.PHAR ---
PT UNABLE TO VERIFY HOME MEDS- TALKED TO PTS DAUGHTER IN LAW THAT TAKES CARE OF PTS MEDS AND SHE STS PT HAS TAKEN HERSELF OFF SEVERAL OF HER MEDICATIONS MONTHS AGO( ATORVASTATIN 10 MG QPM, CLOPIDOGRIL 75 MG DAILY, COREG 6.25 MG BID, ENTRESTO [id number] HALF A TABLET BID.
[2023-12-10 12:00] VITALS: BP 107/62
[2023-12-10] MEDS: acetaminophen 325 mg Tablet 650 MG PO (12:20)
[2023-12-10] MEDS: LORazepam 2 mg/mL INJ 10 mL MDV IVP (12:58)
[2023-12-10] MEDS: OLANZapine 5 mg ODT 10 MG PO (12:58)
--- NOTE | 2023-12-10 14:12 | P.PN_ITS ---
Subjective 2 Subjective: Patient agitated and restless. Has a one-on-one sitter. Patient's daughter and son-in-law visited after my initial exam. They were shocked to see her behaving like this. This is worse than yesterday. They remain interested in hospice and do not want aggressive workup. Vitals/I&O/Wt Last Vital Signs Temp 97.7 F 12/09/23 23:40 Pulse 83 12/09/23 23:40 Resp 18 12/09/23 23:40 BP 107/62 12/10/23 12:00 Pulse Ox 94 12/09/23 23:40 O2 Del Method Room Air 12/09/23 23:40 12/09/23 12/10/23 12/10/23 22:59 06:59 14:59 Intake Total 1420 / 1420 120 / 1540 Balance 1420 / 1420 120 / 1540 Weight last 48 hrs Weight 83.915 kg Weight 42.592 kg Weight 38.102 kg Physical Exam 2 Narrative: Frail elderly female who is alert but confused very restless and at times agitated. Heart regular S1-S2 no loud murmurs Lungs clear to auscultation Abdomen soft nontender nondistended positive bowel sounds Extremities no clubbing cyanosis or edema Skin: Palm sized ulceration on left upper chest, possible melanoma on left cheek. Large scar left nasolabial fold Data 12/09/23 17:00 12/09/23 17:00 Micro: Microbiology 12/09/23 19:20 Blood Culture - Preliminary Blood SPECIMEN COLLECTED 12/09/23 19:15 Blood Culture - Preliminary Blood SPECIMEN COLLECTED A&P Assessment and plan (1) Agitation requiring sedation protocol: Zyprexa 10 mg ODT now Ativan 2 mg IV now Plan to sedate patient so that family can take patient home with hospice [facility] (2) Acute encephalopathy: Unknown etiology will treat symptomatically as above (3) NSTEMI (non-ST elevated myocardial infarction): Patient with known ischemic heart disease with an EF of 35% found March 2023. At that time hospice was offered and she was placed on hospice services for short period of time. (4) Lymphoma: Family was unclear of her cancer diagnosis. 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 Currently covered. 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
[2023-12-10 15:58] VITALS: BP 126/77; PULSE 61; RESP 18; O2SAT 93
--- NOTE | 2023-12-10 19:40 | PC.NURSE ---
SHIFT SUMMARY Patient was very restless all morning. Alert to self only. Patient continuously attempted to get out of bed. Dr. Copeland and family at bedside. Ativan and zyprexa given. Patient is now resting comfortably in bed with 1:1 sitter at bedside.
[2023-12-10 19:56] VITALS: BP 161/96; PULSE 64; RESP 16; TEMP 36.4; O2SAT 95
[2023-12-10] MEDS: enoxaparin 40 mg/0.4 mL Syringe SUBCUT (21:02)
[2023-12-10] MEDS: cefTRIAXone 1,000 MG in sodium chloride 0.9% (plus) 50 ML 100 MG IV (21:02)
[2023-12-11] VITALS: BP 165/85; PULSE 75; RESP 16; TEMP 36.4; O2SAT 96
[2023-12-11] MEDS: LORazepam 2 mg/mL INJ 10 mL MDV IVP (00:17)
[2023-12-11 04:00] VITALS: BP 163/98; PULSE 78; RESP 17; TEMP 36.5; O2SAT 93
[2023-12-11 08:00] VITALS: PULSE 84; RESP 17; TEMP 36.4; O2SAT 95
[2023-12-11] MEDS: clopidogrel 75 mg Tablet PO (08:38)
[2023-12-11] MEDS: carvedilol 6.25 mg Tablet PO ×2 (08:38→20:37)
[2023-12-11] MEDS: aspirin 81 mg EC Tablet PO (08:40)
[2023-12-11] MEDS: lanolin oint 7 gm 1 APPLIC TOPICAL (08:43)
[2023-12-11 12:00] VITALS: PULSE 84; RESP 17; TEMP 36.4
[2023-12-11] MEDS: LORazepam 2 mg/mL INJ 10 mL MDV 0.5 MG SUBLINGUAL ×2 (13:33→18:16)
--- NOTE | 2023-12-11 15:39 | P.PN_ITS ---
Subjective 2 Subjective: Patient much calmer today. However she cannot interact with me meaningfully. Her RN and one-on-one sitter patient slept through the night after the administration of Zyprexa and Ativan yesterday. She arouse this morning at 7 AM somewhat agitated but not trying to get out of bed anymore. She is significantly calmer. Vitals/I&O/Wt Last Vital Signs Temp 97.6 F 12/11/23 12:00 Pulse 84 12/11/23 12:00 Resp 17 12/11/23 12:00 BP 163/98 12/11/23 04:00 Pulse Ox 95 12/11/23 08:00 O2 Del Method Room Air 12/10/23 15:58 Weight last 48 hrs Weight 42.774 kg Weight 83.915 kg Weight 42.592 kg Weight 38.102 kg Physical Exam 2 Narrative: Frail elderly female who is confused mildly agitated. Heart regular S1-S2 no loud murmurs Lungs clear to auscultation Abdomen soft nontender nondistended positive bowel sounds Extremities no clubbing cyanosis or edema Skin: Palm sized ulceration on left upper chest, possible melanoma on left cheek. Large scar left nasolabial fold Data 12/09/23 17:00 12/09/23 17:00 Micro: Microbiology 12/09/23 19:20 Blood Culture - Preliminary Blood NEGATIVE TO DATE 12/09/23 19:15 Blood Culture - Preliminary Blood NEGATIVE TO DATE A&P Assessment and plan (1) Agitation: Continue Ativan 0.5 mg every 4 hours as needed Zyprexa tonight before bed. (2) Acute encephalopathy: Unknown etiology will treat symptomatically as above (3) NSTEMI (non-ST elevated myocardial infarction): Patient with known ischemic heart disease with an EF of 35% found March 2023. At that time hospice was offered and she was placed on hospice services for short period of time. No treatment given overall prognosis. (4) Lymphoma: Family was unclear of her cancer diagnosis. I provided education once this diagnosis was found in the CTA chest from 03/18/2023. 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 Currently covered. Plan Home with hospice [facility] plan for tomorrow. Met with family and explained hospice services and the assistance and education that they will be given. I am hopeful that much of their fears were somewhat relieved. They will return home today to set up bed and equipment. 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
[2023-12-11 16:00] VITALS: BP 108/56; PULSE 78; RESP 18; TEMP 36.6; O2SAT 95
[2023-12-11 20:00] VITALS: BP 159/99; PULSE 71; RESP 22; TEMP 36.4; O2SAT 95
[2023-12-11] MEDS: enoxaparin 40 mg/0.4 mL Syringe SUBCUT (20:38)
[2023-12-11] MEDS: cefTRIAXone 1,000 MG in sodium chloride 0.9% (plus) 50 ML 100 MG IV (20:38)
[2023-12-11] MEDS: OLANZapine 10 mg ODT PO (20:38)
[2023-12-12] VITALS (7 sets, daily range): BP systolic 129–179; BP diastolic 63–83; PULSE 60–78; RESP 14–22; TEMP 36.3–37.1; O2SAT 94–96
--- NOTE | 2023-12-12 10:12 | PC.SOCIAL ---
Pg 2 IMM Explained to pt's family Pg 2 IMM. No questions voiced. Provided pt a copy. Initialed, dated, & timed a copy & placed in chart.
--- NOTE | 2023-12-12 13:49 | P.DS_ITS ---
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 Talisha Brown is an 88-year-old female with a past ministry medical history of CAD with a EF of 35%, history of CABG, history of melanoma on the face and an open large squamous cell carcinoma on the anterior chest presented with altered mental status. 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 The patient was given just a few months to live and has now lived 4 months total. The family brought her in again for significant change in mental status with fear of UTI. Hospital Course Hospital Course Patient was admitted for altered mental status. She was found not to have a urinary tract infection. Her increased confusion and agitation seems to be related to a terminal delirium or perhaps brain metastasis. Either way discussion with the family ensued and they would not want aggressive treatment. She had been on hospice when she was diagnosed with a severe end-stage co ngestive heart failure. They would like her to return on hospice as long as Hort her behaviors and agitation can be controlled. She was placed on Ativan and Zyprexa and was able to sleep over 12 hours. That improved her condition. She did require low-dose Ativan throughout the day and with the Zyprexa at night she is able to sleep through the night. She appears much more comfortable and she will be discharged home with hospice [facility] in stable and improved condition. Physical Exam Narrative: Frail elderly female who asleep. I did not arouse her. No one else was in the room. Discharge Data Studies Completed and Pending Completed Studies During Hospitalization Category Date Time Status CT head wo con* [id number] Stat Cat Scan 12/09/23 18:30 Completed CXRP [XR chest 1V portable [id number]] Stat Exams 12/09/23 18:48 Completed Pending at discharge Category Date Time Status Blood Culture Stat Lab 12/09/23 19:20 Results Radiology Impressions Head CT 12/09/23 18:30 IMPRESSION: 1. No acute intracranial pathology. 2. Senescent changes. Chest X-Ray 12/09/23 18:48 IMPRESSION: Moderate left pleural effusion with adjacent atelectasis and/or consolidation. Laboratory Results WBC 6.46 10^3/uL (3.29-11.43) 12/09/23 17:00 RBC 4.53 10^6/uL (3.85-5.65) 12/09/23 17:00 Hgb 12.00 g/dL (11.27-16.99) 12/09/23 17:00 Hct 39.6 % (36-47) 12/09/23 17:00 MCV 87.4 fl (85-98) 12/09/23 17:00 MCH 26.5 pg (27-33) L 12/09/23 17:00 MCHC 30.3 g/dL (30-55) 12/09/23 17:00 RDW 14.1 % (12.1-15.1) 12/09/23 17:00 Plt Count 362 10^3/cmm (157-399) 12/09/23 17:00 MPV 9.6 fL (7.4-10.4) 12/09/23 17:00 Neut % (Auto) 62.1 % 12/09/23 17:00 Lymph % (Auto) 24.9 % 12/09/23 17:00 [place] % (Auto) 9.6 % 12/09/23 17:00 Eos % (Auto) 2.0 % 12/09/23 17:00 Baso % (Auto) 1.2 % 12/09/23 17:00 Neut # (Auto) 4.01 10^3/uL (1.8-7.7) 12/09/23 17:00 Lymph # (Auto) 1.6 10^3/uL (0.8-4.8) 12/09/23 17:00 [place] # (Auto) 0.6 10^3/uL (0.2-0.9) 12/09/23 17:00 Eos # (Auto) 0.1 10^3/uL (0.0-0.8) 12/09/23 17:00 Baso # (Auto) 0.1 10^3/uL (0.0-0.1) 12/09/23 17:00 Nucleated RBC % (auto) 0 % 12/09/23 17:00 Nucleated RBCs # 0.0 /100WBC 12/09/23 17:00 ESR 15 mm/hr (0-15) 12/09/23 19:15 Sodium 140 mmol/L (136-145) 12/09/23 17:00 Potassium 4.5 mmol/L (3.5-5.1) 12/09/23 17:00 Chloride 104 mmol/L (98-107) 12/09/23 17:00 Carbon Dioxide 23 mmol/L (22-29) 12/09/23 17:00 Anion Gap 17.5 (5-19) 12/09/23 17:00 BUN 16 mg/dL (8-23) 12/09/23 17:00 Creatinine 0.7 mg/dL (0.5-0.9) 12/09/23 17:00 GFR Calculation Not Reportable 12/09/23 17:00 Glucose 150 mg/dL (65-115) H 12/09/23 17:00 Calculated Osmolality 294 mOsm/kg (285-295) 12/09/23 17:00 Lactic Acid 1.2 mmol/L (0.5-2.2) 12/09/23 19:15 Calcium 10.3 mg/dL (8.5-10.5) 12/09/23 17:00 Total Bilirubin 0.4 mg/dL (0.15-1.2) 12/09/23 17:00 AST 21 U/L (0-32) 12/09/23 17:00 ALT < 5 U/L (0-33) 12/09/23 17:00 Alkaline Phosphatase 92 U/L (35-105) 12/09/23 17:00 Troponin T Baseline 203 ng/L (0-10) H* 12/09/23 17:00 Troponin T 120 Minute 182.9 ng/L (0-10) H 12/09/23 21:45 Delta Troponin T -20.1 ABS# (0-10) L 12/09/23 21:45 Troponin T Hi Sens 6Hr 187.7 ng/L (0-10) H 12/10/23 00:25 Troponin T Hi Sens 6Hr Delta -15.3 ng/L (0-12) L 12/10/23 00:25 C-Reactive Protein 10.4 mg/L (0.0-4.9) H 12/09/23 19:15 NT-Pro-B Natriuret Pep 2738 pg/mL (0-450) H 12/09/23 17:00 Total Protein 7.6 g/dL (6.6-8.7) 12/09/23 17:00 Albumin 3.8 g/dL (3.5-5.2) 12/09/23 17:00 Globulin 3.8 g/dL (1.3-4.6) 12/09/23 17:00 Procalcitonin 0.04 ng/mL (0-0.5) 12/09/23 19:15 TSH 4.48 uIU/mL (0.27-4.20) H 12/09/23 19:15 Urine Color Yellow (Yellow) 12/09/23 18:58 Urine Appearance Clear (CLEAR) 12/09/23 18:58 Urine pH 5 (5-7) 12/09/23 18:58 Ur Specific [place] 1.015 (1.005-1.030) 12/09/23 18:58 Urine Protein Neg (Negative) 12/09/23 18:58 Urine Glucose (UA) Norm (Normal) 12/09/23 18:58 Urine Ketones Negative (Negative) 12/09/23 18:58 Urine Blood 2+ (Negative) H 12/09/23 18:58 Urine Nitrate Negative (Negative) 12/09/23 18:58 Urine Bilirubin Neg (Negative) 12/09/23 18:58 Urine Urobilinogen Norm mg/dL (Negative) 12/09/23 18:58 Ur Leukocyte Esterase Trace (Negative) H 12/09/23 18:58 Urine RBC 0-4 /hpf (0-2) H 12/09/23 18:58 Urine WBC 5-10 /hpf (0-5) H 12/09/23 18:58 Ur Squamous Epith Cells 0-4 /hpf (0-5) H 12/09/23 18:58 Amorphous Sediment Not Reportable 12/09/23 18:58 Urine Bacteria None /hpf (NONE) 12/09/23 18:58 Urine Mucus None /hpf 12/09/23 18:58 Vitals Last Vital Signs Temp 98.7 F 12/12/23 11:25 Pulse 60 12/12/23 11:25 Resp 17 12/12/23 11:25 BP 153/83 12/12/23 11:25 Pulse Ox 96 12/12/23 11:25 O2 Del Method Room Air 12/12/23 11:25 O2 Flow Rate 1 12/12/23 08:37 Discharge Plan Discharge Patient Disposition: Hospice - Home Condition: Stable Prescriptions: New lorazepam 2 mg/mL Solution 0.5 mg sublingual Q4H PRN (Reason: Anxiety) Qty: 30 0RF olanzapine 10 mg Tablet,Disintegrating 10 mg PO BEDTIME Qty: 20 0RF morphine concentrate 100 mg/5 mL (20 mg/mL) solution 10 mg PO Q3H PRN (Reason: pain) Qty: 30 0RF Discontinued aspirin 81 mg Tablet,Delayed Release (Dr/Ec) 81 mg PO DAILY Qty: 30 0RF tramadol 50 mg tablet 50 mg PO Q8H PRN (Reason: pain) Qty: 14 0RF metoprolol succinate 25 mg tablet extended release 24 hr 12.5 mg PO DAILY metformin 500 mg tablet extended release 24 hr 500 mg PO DAILY Discharge Orders: Discharge Order (Routine); Ordered 12/12/23 Ordered By: Contreras Copeland Referrals: [facility] [Outside] Discharge Diet: Advance as tolerated Discharge Activity: Limit activity as instructed Patient Instructions: Lorazepam (By mouth) (Ativan, Lorazepam Intensol, Loreev XR), Morphine, Rapid Release (By mouth) (Roxanol), Olanzapine (By mouth) (Zyprexa, Zyprexa Zydis), Pleural Effusion (DC) Discharge Attestations Time Spent in Discharge Care*: less than 30 min Quality Metrics Clinical Quality Measures [ No reported AMI, CVA or VTE this stay] Coding Level of Care Code Acute Code for Chg Fwd Diagnoses Agitation R45.1 Acute encephalopathy G93.40 NSTEMI (non-ST elevated myocardial infarction) 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
== END 2023-12-12 17:22 | disposition hospice, home (50) | DRG 71 ==
LOC: ER 20:12 → MEDSURG 20:40
PROVIDERS: Admitting Provider Family Medicine; Emergency Provider Emergency Medicine; Visit Provider Internal Medicine
DX: G93.40 Encephalopathy, unspecified (principal); C78.1 Secondary malignant neoplasm of mediastinum; I50.22 Chronic systolic (congestive) heart failure; E46 Unspecified protein-calorie malnutrition; Z68.1 Body mass index [BMI] 19.9 or less, adult; E11.9 Type 2 diabetes mellitus without complications; I11.0 Hypertensive heart disease with heart failure; I25.10 Atherosclerotic heart disease of native coronary artery without angina pectoris; I25.5 Ischemic cardiomyopathy; C44.529 Squamous cell carcinoma of skin of other part of trunk; Z66 Do not resuscitate; R45.1 Restlessness and agitation; Z79.82 Long term (current) use of aspirin; Z79.02 Long term (current) use of antithrombotics/antiplatelets; Z79.84 Long term (current) use of oral hypoglycemic drugs; Z95.1 Presence of aortocoronary bypass graft; Z87.440 Personal history of urinary (tract) infections; I25.2 Old myocardial infarction
CPT/HCPCS: 36415; 70450; 71045; 80053; 81001; 83605; 83880; 84145; 84443; 84484; 85025; 85651; 86140; 87040; 92523; 92610; 94664; 96365; 96367; 96372; 99285; C9113; J0456; J0696; J1630; J1650; J2060; J7030; J7050